=== PATIENT | female | born 1935 | race Caucasian/White ===

== ENCOUNTER 2017-05-01 19:24 | Inpatient (IN) | payer MEDICARE, OTHER ==
--- NOTE | 2017-05-01 20:02 | ER Document Report ---
ED Hip Pain/Injury - General Chief Complaint: Hip Injury Stated Complaint: FALL,HIP PAIN Time Seen by Provider: 05/01/17 19:34 Mode of Arrival: Medic Information source: Patient TRAVEL OUTSIDE OF THE [place] IN LAST 30 DAYS: No - HPI Patient complains to provider of: Injury, Hip Occurred: This afternoon Where: Home, Outdoors - garden Onset/Duration: Sudden Quality of pain: Sharp Severity: Severe Context: Fell/tripped Symptoms prior to fall: None Symptoms since fall: denies: Chest pain Skin Color: Normal Skin Temperature: Warm Rotation of extremity: None - Related Data Allergies/Adverse Reactions: shellfish derived Allergy (Unverified 05/01/17 19:38) Home Medications: Current Home Medications No Home Medications 05/01/17 [History] Past Medical History - General Information source: Patient - Social History Smoking Status: Never Smoker Cigarette use (# per day): No Chew tobacco use (# tins/day): No Frequency of alcohol use: None Drug Abuse: None Lives with: Spouse/Significant other Family History: Reviewed & Not Pertinent Patient has suicidal ideation: No Patient has homicidal ideation: No - Past Medical History Cardiac Medical History: Reports: None Pulmonary Medical History: Reports: None EENT Medical History: Reports: None Neurological Medical History: Reports: None Endocrine Medical History: Reports: None Renal/ Medical History: Reports: None Malignancy Medical History: Reports: None GI Medical History: Reports: None Musculoskeltal Medical History: Reports None Psychiatric Medical History: Reports: None Past Surgical History: Reports: Hx Bowel Surgery - COLON Ca RESECTION 2006 Review of Systems - Review of Systems Constitutional: No symptoms reported EENT: No symptoms reported Cardiovascular: No symptoms reported Respiratory: No symptoms reported Gastrointestinal: No symptoms reported Genitourinary: No symptoms reported Female Genitourinary: Post menopausal Musculoskeletal: See HPI Skin: No symptoms reported Neurological/Psychological: No symptoms reported Physical Exam - Vital signs Vitals: Temp Pulse Resp BP Pulse Ox 97.4 F 73 17 158/56 H 96 05/01/17 19:31 05/01/17 19:31 05/01/17 19:31 05/01/17 19:31 05/01/17 19:31 Interpretation: Hypertensive - General General appearance: Appears well, Alert In distress: None - HEENT Head: Normocephalic Eyes: Normal Conjunctiva: Normal Ears: Normal Nasal: Normal Mouth/Lips: Normal Mucous membranes: Normal Pharynx: Normal Neck: Normal - Respiratory Respiratory status: No respiratory distress Breath sounds: Normal - Cardiovascular Rhythm: Regular Heart sounds: Normal auscultation Murmur: No - Abdominal Inspection: Normal Distension: No distension - Extremities General upper extremity: Normal inspection General lower extremity: Normal inspection, Tender - R. HIP, Normal color, Other - MUCH PAIN W/ PASSIVE MOTION IN ANY PLANE - Neurological Neuro grossly intact: Yes Cognition: Normal Orientation: AAOx4 - Psychological Associated symptoms: Normal affect, Normal mood - Skin Skin Temperature: Warm Skin Moisture: Dry Skin Color: Normal Skin Turgor: Elastic Course - Vital Signs Vital signs: Temp Pulse Resp BP Pulse Ox 97.4 F 73 17 158/56 H 98 05/01/17 19:31 05/01/17 19:31 05/01/17 19:31 05/01/17 19:31 05/01/17 20:05 - Laboratory Result Diagrams: 05/01/17 21:29 05/01/17 21:29 Laboratory results interpreted by me: 05/01/17 05/01/17 21:29 21:29 WBC 14.3 H Seg Neuts % (Manual) 89 H Lymphocytes % (Manual) 5 L Abs Neuts (Manual) 12.7 H BUN 23 H Glucose 159 H - Diagnostic Test Radiology reviewed: Image reviewed, Reports reviewed - Consults DR. CHAVEZ Time consulted: 23:55 Consulted provider: will come to ER Discharge - Discharge Clinical Impression: Fracture of hip Qualifiers: Encounter type: initial encounter Fracture type: closed Laterality: right Qualified Code(s): S72.001A - Fracture of unspecified part of neck of right femur, initial encounter for closed fracture Condition: Good Disposition: ADMITTED INPATIENT Admitting Provider: Hospitalist Unit Admitted: Telemetry
--- NOTE | 2017-05-01 20:25 | RADIOLOGY REPORT (SQ) ---
EXAM DESCRIPTION: HIP RIGHT AP/LATERAL COMPLETED DATE/TIME: 05/01/2017 8:11 pm REASON FOR STUDY: bed mp s/p fall per dr rodriguez +rotation COMPARISON: None. NUMBER OF VIEWS: Two views. TECHNIQUE: AP pelvis and additional frog-leg view of the right hip. LIMITATIONS: None. FINDINGS: MINERALIZATION: Normal. RIGHT HIP: Fracture is identified at the level of the base of the right femoral neck. LEFT HIP: No fracture or dislocation. No worrisome bone lesions. PUBIS AND ISCHIUM: No fracture. PELVIS: No fracture. SACRUM: No fracture or dislocation. No worrisome bone lesions. LOWER LUMBAR SPINE: No fracture or dislocation. No worrisome bone lesions. No significant disc disea se. SOFT TISSUES: No findings. OTHER: No other significant finding. IMPRESSION: Right hip fracture the level of the base of the femoral neck. Other findings as noted hudson kendall TECHNICAL DOCUMENTATION: JOB ID: [id number] [employer]- All Rights Reserved
[2017-05-01 21:36] LABS: HEMATOCRIT 40.9 % (36.0-47.0); HEMOGLOBIN 13.5 g/dL (12.0-15.5); HGB HCT DIFFERENCE -0.4; MEAN CORPUSCULAR HEMOGLOBIN 28.6 pg (27.0-33.4); MEAN CORPUSCULAR VOLUME 87 fl (80-97); RED BLOOD COUNT 4.73 10^6/uL (3.72-5.28); RED CELL DISTRIBUTION WIDTH 13.7 % (11.5-14.0); WHITE BLOOD COUNT 14.3 10^3/uL (4.0-10.5)
[2017-05-01] MEDS ORDERED: HYDROMORPHONE HCL INJ/PF 2 MG/ML AMPULE IV ONE (21:52)
[2017-05-01 21:54] LABS: ALANINE AMINOTRANSFERASE 26 U/L (9-52); ALBUMIN 4.4 g/dL (3.5-5.0); ALKALINE PHOSPHATASE 98 U/L (38-126); ANION GAP 10 (5-19); ASPARTATE AMINO TRANSFERASE 22 U/L (14-36); BASOPHILS % (MANUAL) 0 % (0-2); BILIRUBIN,DIRECT 0.4 mg/dL (0.0-0.4); BILIRUBIN,TOTAL 0.5 mg/dL (0.2-1.3); BLOOD UREA NITROGEN 23 mg/dL (7-20); CALCIUM 9.4 mg/dL (8.4-10.2); CARBON DIOXIDE 27 mmol/L (22-30); CHLORIDE 103 mmol/L (98-107); CREATININE RESULT 0.82 mg/dL (0.52-1.25); EOSINOPHILS % (MANUAL) 1 % (0-6); GLUCOSE 159 mg/dL (75-110); LYMPHOCYTES % (MANUAL) 5 % (13-45); POTASSIUM 4.6 mmol/L (3.6-5.0); SODIUM 140.4 mmol/L (137-145); TOTAL CELLS COUNTED 100; TOTAL PROTEIN 7.8 g/dL (6.3-8.2)
[2017-05-01 21:55] LABS: TOXIC GRANULATION SLIGHT
--- NOTE | 2017-05-01 22:46 | RADIOLOGY REPORT (SQ) ---
EXAM DESCRIPTION: CHEST SINGLE VIEW COMPLETED DATE/TIME: 05/01/2017 10:30 pm REASON FOR STUDY: PRE-OP COMPARISON: None. EXAM PARAMETERS: NUMBER OF VIEWS: One view. TECHNIQUE: Single frontal radiographic view of the chest acquired. RADIATION DOSE: NA LIMITATIONS: None. FINDINGS: LUNGS AND PLEURA: No opacities, masses or pneumothorax. No pleural effusion. MEDIASTINUM AND HILAR STRUCTURES: No masses. Contour normal. HEART AND VASCULAR STRUCTURES: Heart normal in size. Normal vasculature. BONES: No acute findings. HARDWARE: None in the chest. OTHER: No other significant finding. IMPRESSION: NO ACUTE RADIOGRAPHIC FINDING IN THE CHEST. TECHNICAL DOCUMENTATION: JOB ID: [id number]
[2017-05-02 00:26] LABS: ADD ON TESTING BLD IN LAB ACKNOWLEDGE
[2017-05-02 00:35] LABS: MAGNESIUM 1.9 mg/dL (1.6-2.3)
[2017-05-02 01:27] LABS: APPEARANCE,URINE SLIGHTLY-CLOUDY; BILIRUBIN,URINE NEGATIVE (NEGATIVE); GLUCOSE, URINE NEGATIVE (NEGATIVE); KETONES,URINE TRACE mg/dL (NEGATIVE); LEUKOCYTE ESTERASE,URINE SMALL (NEGATIVE); NITRITE,URINE POSITIVE (NEGATIVE); PROTEIN,URINE 30 mg/dL (NEGATIVE); URINE SPECIFIC GRAVITY 1.019; UROBILINOGEN,URINE NEGATIVE mg/dL (<2.0)
[2017-05-02] MEDS ORDERED: CEFTRIAXONE 1 GM/D5W RTU 1 GM/50 ML RTUPB IV ONE (04:00)
[2017-05-02] MEDS ORDERED: DEXTROSE 40% GEL 15 GM TUBE PO PRN ×2 (05:11)
[2017-05-02] MEDS ORDERED: MAGNESIUM HYDROXIDE SUSP 30 ML UDCUP PO PRN (05:11)
[2017-05-02] MEDS ORDERED: NORMAL SALINE 1000 ML 1,000 ML IV PRN (05:11)
[2017-05-02] MEDS ORDERED: DEXTROSE 50%-WATER 25 GM/50 ML DISP.SYRIN IV PRN ×2 (05:11)
[2017-05-02] MEDS ORDERED: GLUCAGON,HUMAN RECOMB 1 MG INJ SUBCUT PRN (05:11)
[2017-05-02] MEDS ORDERED: ACETAMINOPHEN 325 MG TABLET PO PRN (05:11)
[2017-05-02] MEDS ORDERED: PROMETHAZINE HCL 25 MG TABLET PO PRN (05:16)
[2017-05-02] MEDS ORDERED: MORPHINE SULFATE 10 MG/ML INJ IV PRN (05:17)
--- NOTE | 2017-05-02 08:14 | EKG REPORT ---
SEVERITY:- BORDERLINE ECG - SINUS RHYTHM BORDERLINE LEFT AXIS DEVIATION LOW VOLTAGE IN FRONTAL LEADS BORDERLINE PROLONGED QT INTERVAL : Confirmed by: Mando Baig MD 02-May-2017 08:14:39
--- NOTE | 2017-05-02 09:10 | PDOC CONSULTATION ---
Consultation Consult Date: 05/02/17 Consult reason:: Right hip fracture History of Present Illness Admission Date/PCP: 05/02/17 05:11 History of Present Illness: Patient is an 82-year-old white female who lives independently and is a community ambulator who fell at home and was unable to ambulate. She was brought to the emergency room where a right basicervical femoral neck fracture was identified. She is admitted to the hospital service and orthopedics consulted for fracture management. Past Medical History Cardiac Medical History: Reports: None Pulmonary Medical History: Reports: None EENT Medical History: Reports: None Neurological Medical History: Reports: None Endocrine Medical History: Reports: None Renal/ Medical History: Reports: None Malignancy Medical History: Reports: None GI Medical History: Reports: None Musculoskeltal Medical History: Reports: None Psychiatric Medical History: Reports: None Past Surgical History Past Surgical History: Reports: None Social History Lives with: Spouse/Significant other Smoking Status: Unknown if Ever Smoked Frequency of Alcohol Use: None Hx Recreational Drug Use: No Drugs: None - Advance Directive Resuscitation Status: Full Code Family History Family History: Reviewed & Not Pertinent Parental Family History Reviewed: No Children Family History Reviewed: No Sibling(s) Family History Reviewed.: No Medication/Allergy Home Medications: No Home Medications 05/01/17 Allergies/Adverse Reactions: shellfish derived Allergy (Unverified 05/02/17 08:55) Review of Systems All systems: as per [facility] Physical Exam Vital Signs: Temp Pulse Resp BP Pulse Ox 36.9 C 80 16 123/58 L 100 05/02/17 08:00 05/02/17 08:00 05/02/17 08:00 05/02/17 08:00 05/02/17 08:00 Physical Exam: Is a somewhat overweight middle-aged white female lying in hospital bed. She is alert oriented and appropriate. She is aware of her surroundings and a long discussion about the need for surgical intervention. General appearance: PRESENT: mild distress Head exam: PRESENT: normocephalic Eye exam: PRESENT: EOMI Respiratory exam: PRESENT: unlabored Cardiovascular exam: PRESENT: RRR Pulses: PRESENT: +1 pedal pulses bilateral Vascular exam: PRESENT: normal capillary refill GI/Abdominal exam: PRESENT: soft Rectal exam: PRESENT: deferred Extremities exam: PRESENT: other - Right lower extremity without deformity. This pain is associated with passive range of motion. Skin is intact. Distal neurovascular examination is intact. Neurological exam: PRESENT: alert, awake, oriented to person, oriented to place , oriented to time, oriented to situation. ABSENT: motor sensory deficit Psychiatric exam: PRESENT: appropriate affect, normal mood. ABSENT: homicidal ideation, suicidal ideation Skin exam: PRESENT: dry, intact, warm. ABSENT: cyanosis, rash Results Impressions: Hip/Pelvis X-Ray 05/01/17 00:00 IMPRESSION: Right hip fracture the level of the base of the femoral neck. Other findings as noted above Chest X-Ray 05/01/17 20:58 IMPRESSION: NO ACUTE RADIOGRAPHIC FINDING IN THE CHEST. Status: Imported from PACS Assessment & Plan - Diagnosis (1) Fracture of femoral neck, right Is this a current diagnosis for this admission?: YesPlan: 82-year-old white female community ambulator with a right femoral neck fracture. Plan will be for open reduction internal fixation under choice anesthesia first thing tomorrow morning. - Time Time Spent: 50 to 70 Minutes Anticipated discharge: SNF Within: within 48 hours
--- NOTE | 2017-05-02 09:15 | PDOC H&P ---
History of Present Illness Admission Date/PCP: 05/02/17 05:11 Samara orosco Patient complains of: Right hip pain, status post fall History of Present Illness: CHALO LI is a 82 year old female with underlying arthritis, along with a easy bruisability, colon cancer survivor, S/P surgery for same in 2006, and status post excision of melanoma from her face and left wrist, who presents to the emergency room after falling at home in her garden when her feet became entangled in an electrical cord. Workup has revealed right hip fracture. Quite sharp pronounced pain with much of any movement of her right lower extremity and obviously with any contact of the area of injury. Prior to her fall, no specific complaints, including nausea vomiting, fever or chills, diarrhea or dysuria, chest or abdominal pain. There was no loss of consciousness with the fall, and she did not strike her head. Patient has been discussed with emergency room physician who evaluated the patient. . Laboratory results are listed in [employer] and are reviewed. X-ray summary results are listed below, with full report(s) reviewed. . EKG reviewed. No prior EKG available for comparison. Social history/personal habits: . 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 No use of alcohol tobacco or illicit drugs. Allergies/adverse reactions are listed in [employer] and are reviewed. No problems with intravenous contrast dye. Home medications none REVIEW OF SYSTEMS: Constitutional: No fever or chills. Eyes: Wears reading glasses. ENT: No swallowing problems or complaints. Denies hearing loss. Pulmonary: No current complaints. Cardiovascular: No current complaints, including chest pain. States she can easily walk a mile without shortness of breath, chest pain, or symptoms consistent with lower extremity claudication. Confirmed by . Gastrointestinal: No current complaints, including nausea or vomiting. Skin: No current complaints, including rashes. Hematologic: Easy bruising. Neurologic: No current complaints, including numbness or tingling. Musculoskeletal: See history and present illness. Psychiatric: Denies anxiety or depression. Endocrine: No current complaints, including polyuria. Genitourinary: No current complaints, including dysuria. PHYSICAL EXAMINATION: 5 feet 6 inches tall. 71.9 kg. BMI 25.6 kg/m.Temperature 97.5. Pulse 81 and regular. Blood pressure 137/54. Respirations are 18 and unlabored. 98% saturation on room air. Adequately nourished though chronically ill-appearing female who appears a bit older than her stated age. Pleasant awake alert and cooperative. No obvious distress other than somewhat anxious. is present at her side; patient approves. Skin is warm and dry. No grossly obvious evidence of rash in areas of skin examined. No subcutaneous nodules palpated. ENT: Hearing grossly normal to normal conversation. Tongue midline on protrusion pink and slightly tacky. Eyes: No scleral icterus. Pupils equal and reactive to light at 4 mm. [place] conjunctivae. No raccoon eyes. Neck is supple and nontender to gentle active range of motion and palpation. Midline trachea. No palpable thyroid nodule mass enlargement or tenderness. Lymphatic: No palpable cervical or clavicular nodes. Neck and lymphatic exams limited by patient body habitus. Psychiatric: Reasonable insight into acute and chronic medical issues. Oriented to time location and why here. Lungs: Auscultation reveals clear and equal breath sounds bilaterally. No use of accessory respiratory muscles. Cardiovascular: Heart regular rate and rhythm, without gallop murmur or rub. No carotid or abdominal aortic bruits. No ankle or pedal edema. Faintly palpable dorsalis pedis pulses. Abdomen:soft slightly distended nontender with positive bowel sounds. Unable to adequately evaluate abdomen for masses or organomegaly due to distention. Extremities: Feet are warm and dry. No calf tenderness to compression. No grossly obvious visual evidence of calf swelling. Gentle manipulation of left lower extremity fails to reveal any obvious evidence of injury or instability to knee hip or ankle. Manipulation of right lower extremity obviously not attempted due to her injury. Right lower extremity slightly externally rotated , and a bit shorter than the left lower extremity. Neurologic: Moves upper extremities grossly normally. Left patellar reflex absent; not checked on right due to her injury. Absent left Babinski; not checked on right due to her injury.. Light touch is intact at feet. Dorsiflexion and plantarflexion of feet 5 / 5 and symmetric. Past Medical History Cardiac Medical History: Denies: Congestive Heart Failure, DVT, Myocardial Infarction, Hyperlipidema, Hypertension, Pulmonary Embolism Pulmonary Medical History: Denies: Asthma, Chronic Obstructive Pulmonary Disease (COPD), Sleep Apnea EENT Medical History: Reports: Eyes - Glasses Denies: Ears, Throat Neurological Medical History: Denies: Hemorrhagic CVA, Ischemic CVA, Seizures Endocrine Medical History: Denies: Diabetes Mellitus Type 1, Diabetes Mellitus Type 2, Hyperthyroidism, Hypothyroidism Renal/ Medical History: Reports: None Malignancy Medical History: Reports: Colorectal Cancer - Segmental colectomy, 2006, Skin Cancer - Melanoma excised from face and left wrist GI Medical History: Denies: Cirrhosis, Gastroesophageal Reflux Disease, Hepatitis, Peptic Ulcer Disease Musculoskeltal Medical History: Reports: Arthritis Psychiatric Medical History: Denies: Alcohol Dependency, Depression, General Anxiety Disorder, Substance Abuse, Tobacco Dependency Hematology: Reports: Other - Easy bruising Infectious Medical History: Denies: Clostridium Difficile, Hepatitis B, Hepatitis C, Methicillin- Resistant Staph Aureus Past Surgical History Past Surgical History: Reports: Other - Segmental colectomy, carcinoma; excision of melanoma from face, left wrist Social History Information Source: Patient, Emergency Med Personnel, [facility] Records Lives with: Spouse/Significant other Smoking Status: Unknown if Ever Smoked Frequency of Alcohol Use: None Hx Recreational Drug Use: No Drugs: None - Advance Directive Resuscitation Status: Full Code Surrogate healthcare decision maker:: Family History Family History: Reviewed & Not Pertinent Parental Family History Reviewed: Yes - Parents of myocardial infarctions Children Family History Reviewed: Yes - Healthy Sibling(s) Family History Reviewed.: Yes - Uncertain health status Medication/Allergy Home Medications: Acetaminophen [Tylenol 325 mg Tablet] 650 mg PO Q4HP PRN tablet 05/05/17 Cefuroxime Axetil [Ceftin 500 mg Tablet] 500 mg PO BID #9 tablet 05/05/17 Docusate Sodium [Colace 100 mg Capsule] 100 mg PO BID capsule 05/05/17 Magnesium Hydroxide [Milk of Magnesia 30 ml Udcup] 30 ml PO Q48HP PRN udc 05/05 Oxycodone HCl [Oxy-Ir 5 mg Tablet] 5 mg PO Q6HP PRN #30 tablet 05/05/17 Rivaroxaban [Xarelto 10 mg Tablet] 10 mg PO QHS #30 tablet 05/05/17 Allergies/Adverse Reactions: shellfish derived Allergy (Unverified 05/02/17 08:55) Physical Exam Vital Signs: Temp Pulse Resp BP Pulse Ox 97.5 F 81 18 137/54 H 98 05/02/17 03:58 05/02/17 03:58 05/02/17 03:58 05/02/17 03:58 05/02/17 03:58 Results Impressions: Hip/Pelvis X-Ray 05/01/17 00:00 IMPRESSION: Right hip fracture the level of the base of the femoral neck. Other findings as noted above Chest X-Ray 05/01/17 20:58 IMPRESSION: NO ACUTE RADIOGRAPHIC FINDING IN THE CHEST. Assessment & Plan - Diagnosis (1) DVT prophylaxis Is this a current diagnosis for this admission?: Yes (2) UTI (urinary tract infection) Qualifiers: Urinary tract infection type: site unspecified Is this a current diagnosis for this admission?: YesPlan: Blood and urine cultures. Rocephin. (3) Closed right hip fracture Qualifiers: Encounter type: initial encounter Qualified Code(s): S72.001A - Fracture of unspecified part of neck of right femur, initial encounter for closed fracture Is this a current diagnosis for this admission?: YesPlan: Orthopedics consult. Knee high SCDs for DVT prophylaxis; medical DVT prophylaxis per orthopedics, per usual protocol.. Impression and plans were discussed with patient and , both of whom concur. Time spent in evaluation and management of patient: 58 minutes. - Time Time Spent: 50 to 70 Minutes Anticipated discharge: Acute Rehab Within: Other - Inpatient Certification Based on my medical assessment, after consideration of the patient's comorbidities, presenting symptoms, or acuity I expect that the services needed warrant INPATIENT care.: Yes I certify that my determination is in accordance with my understanding of Medicare's requirements for reasonable and necessary INPATIENT services [42 CFR 412.3e].: Yes Medical Necessity: Need for Pain Control, Need for Surgery, Risk of Diagnosis Which Will Require Inpatient Eval/Care/Monitoring Post Hospital Care: D/C or Transfer Summary
[2017-05-02] MEDS: DOCUSATE SODIUM 100 MG CAPSULE PO SCH ×2 (10:45→18:05)
[2017-05-02] MEDS: TRAMADOL HCL 50 MG TABLET PO PRN ×3 (12:05→22:12)
--- NOTE | 2017-05-02 15:28 | PDOC PROGRESS REPORT ---
Subjective Progress Note for:: 05/02/17 Subjective:: Patient is seen on morning rounds. She is resting in bed. Her is at bedside. They state Dr Ruff has just seen the patient from orthopedic surgery. Her surgery to repair hip fracture will be tomorrow due to present schedule. Patient states she is only having pain with movement. She denies any shortness of breath, chest pain or dyspnea. She denies any fevers or chills at the present time. Physical Exam Vital Signs: Temp Pulse Resp BP Pulse Ox 98.6 F 78 18 144/49 H 95 05/02/17 12:04 05/02/17 12:04 05/02/17 12:04 05/02/17 12:04 05/02/17 12:04 General appearance: PRESENT: no acute distress, well-developed, well-nourished Head exam: PRESENT: atraumatic, normocephalic Eye exam: PRESENT: conjunctiva pink Ear exam: PRESENT: normal external ear exam Mouth exam: PRESENT: moist, tongue midline Neck exam: ABSENT: carotid bruit, JVD, lymphadenopathy, thyromegaly Respiratory exam: PRESENT: clear to auscultation vanessa. ABSENT: rales, rhonchi, wheezes Cardiovascular exam: PRESENT: RRR. ABSENT: diastolic murmur, rubs, systolic murmur Pulses: PRESENT: normal dorsalis pedis pul Vascular exam: PRESENT: normal capillary refill GI/Abdominal exam: PRESENT: normal bowel sounds, soft. ABSENT: distended, guarding, mass, organolmegaly, rebound, tenderness Rectal exam: PRESENT: deferred Extremities exam: PRESENT: full ROM. ABSENT: calf tenderness, clubbing, pedal edema Neurological exam: PRESENT: alert, awake, oriented to person, oriented to place , oriented to time, oriented to situation, CN II-XII grossly intact. ABSENT: motor sensory deficit Psychiatric exam: PRESENT: appropriate affect, normal mood. ABSENT: homicidal ideation, suicidal ideation Skin exam: PRESENT: dry, intact, warm. ABSENT: cyanosis, rash Results Impressions: Hip/Pelvis X-Ray 05/01/17 00:00 IMPRESSION: Right hip fracture the level of the base of the femoral neck. Other findings as noted above Chest X-Ray 05/01/17 20:58 IMPRESSION: NO ACUTE RADIOGRAPHIC FINDING IN THE CHEST. Assessment & Plan - Diagnosis (1) Closed right hip fracture Qualifiers: Encounter type: initial encounter Qualified Code(s): S72.001A - Fracture of unspecified part of neck of right femur, initial encounter for closed fracture Is this a current diagnosis for this admission?: YesPlan: Patient is scheduled for ORIF of right hip with Dr Ruff. She has no cardiopulmonary risk factors impeding surgery. She is a very active 82 yr old (2) DVT prophylaxis Is this a current diagnosis for this admission?: Yes (3) UTI (urinary tract infection) Qualifiers: Urinary tract infection type: site unspecified Is this a current diagnosis for this admission?: Yes - Time Time Spent with patient: 25-34 minutes Critical Time spent with patient: 15-24 minutes Medications reviewed and adjusted accordingly: Yes
[2017-05-02] MEDS: CEFTRIAXONE 1 GM/D5W RTU 1 GM/50 ML RTUPB IV SCH (21:40)
[2017-05-03] MEDS ORDERED: CEFAZOLIN 2 GM/D5W RTU 2 GM/50 ML RTUPB IV PRN (05:00)
[2017-05-03] MEDS ORDERED: FENTANYL CITRATE INJ/PF 100 MCG/2 ML AMPUL ONE (06:43)
[2017-05-03] MEDS ORDERED: MIDAZOLAM 2 MG/2 ML INJ ONE (06:44)
[2017-05-03] MEDS ORDERED: PROPOFOL INJ 200 MG/20 ML VIAL IV ONE (06:44)
--- NOTE | 2017-05-03 07:15 | PDOC PROGRESS REPORT ---
Subjective Progress Note for:: 05/03/17 Physical Exam Vital Signs: Temp Pulse Resp BP Pulse Ox 36.4 C 77 17 157/65 H 95 05/03/17 05:58 05/03/17 05:58 05/03/17 05:58 05/03/17 05:58 05/03/17 05:58 Intake & Output 05/02/17 05/03/17 05/04/17 06:59 06:59 06:59 Intake Total 3055 Output Total 1010 Balance 2044 Results Impressions: Hip/Pelvis X-Ray 05/01/17 00:00 IMPRESSION: Right hip fracture the level of the base of the femoral neck. Other findings as noted above Chest X-Ray 05/01/17 20:58 IMPRESSION: NO ACUTE RADIOGRAPHIC FINDING IN THE CHEST. Assessment & Plan - Diagnosis (1) Fracture of femoral neck, right Is this a current diagnosis for this admission?: YesPlan: plan for open reduction internal fixation right hip fracture today under choice anesthesia - Time Time Spent with patient: Less than 15 minutes Anticipated discharge: SNF Within: Other
[2017-05-03] MEDS ORDERED: CEFAZOLIN INJ 1 GM VIAL ONE ×2 (07:48→07:58)
[2017-05-03] MEDS ORDERED: FENTANYL CITRATE INJ/PF 100 MCG/2 ML AMPUL IV PRN ×3 (07:53)
[2017-05-03] MEDS ORDERED: PROMETHAZINE HCL INJ 25 MG/1 ML VIAL IV PRN (07:53)
[2017-05-03] MEDS ORDERED: MEPERIDINE HCL/PF INJ 25 MG/1 ML DISP.SYRIN IV PRN (07:53)
[2017-05-03] MEDS ORDERED: DIPHENHYDRAMINE HCL 50 MG/ML VIAL IV PRN (07:53)
--- NOTE | 2017-05-03 08:08 | Operative Report ---
Operative Report DATE OF SURGERY: 05/03/17 PREOPERATIVE DIAGNOSIS: Right proximal femur fracture OPERATION: Open reduction internal fixation right proximal femur fracture SURGEON: XENA CORREA ANESTHESIA: Spinal ESTIMATED BLOOD LOSS: 50 PROCEDURE: With the patient supine on the fracture table the right lower extremities manipulated under fluoroscopic guidance to affect an anatomic reduction of the basicervical femoral neck fracture. The right lower extremities prepped and draped in a sterile fashion. A pin is placed percutaneously down through the skin into the proximal femoral metadiaphysis. Combined reamers to fashion a cortical opening. This was removed and a ball-tipped guide jose advanced down the femur measuring a depth of 380 mm. Subsequently a 380mm x 11 mm 130 [place] gamma 3 nail was advanced over the ball-tipped guide jose to an appropriate depth to allow the proximal interlock. A proximal interlock is then placed which is equidistance between the cephalad and caudad border of the femoral neck as well as in the AP dimension. It is locked from above. Lastly a distal interlock is placed freehand using fluoroscopic guidance uneventfully. The wounds were irrigated and closed with interrupted Vicryl followed by veronica. Sterile dressings are applied and the patient's return to the PACU in satisfactory condition.
[2017-05-03] MEDS ORDERED: RINGERS SOLUTION,LACTATED 1,000 ML IV PRN ×2 (08:12)
[2017-05-03] MEDS ORDERED: ONDANSETRON HCL INJ/PF 4 MG/2 ML SDV IV PRN (08:13)
[2017-05-03] MEDS ORDERED: MORPHINE SULFATE 10 MG/ML INJ IV PRN (08:14)
[2017-05-03] MEDS: DOCUSATE SODIUM 100 MG CAPSULE PO SCH ×2 (10:09→17:25)
--- NOTE | 2017-05-03 10:15 | RADIOLOGY REPORT (SQ) ---
EXAM DESCRIPTION: FEMUR RIGHT; NO CHG FLUORO COMPLETED DATE/TIME: 05/03/2017 8:23 am REASON FOR STUDY: RIGHT HIP IM NAILING COMPARISON: Right hip films 05/01/2017 FLUOROSCOPY TIME: 0.5 minutes 11 digital radiographic images saved to PACS. TECHNIQUE: Intra-operative images acquired during surgical procedure to evaluate progress. NUMBER OF IMAGES: 11 digital radiographic images saved to PACS. LIMITATIONS: None. FINDINGS: Multiple C-arm images during ORIF right hip intertrochanteric fracture, hardware in good a lignment IMPRESSION: Intra procedural imaging and fluoro COMMENT: Quality ID [id number]: Final reports for procedures using fluoroscopy that document radiation exp osure indices, or exposure time and number of fluorographic images (if radiation exposure indices are not available) Please consult full operative report of the attending physician for description of the procedure. TECHNICAL DOCUMENTATION: JOB ID: [id number] [employer]- All Rights Reserved
[2017-05-03] MEDS: RINGERS SOLUTION,LACTATED 1,000 ML IV PRN (10:53)
--- NOTE | 2017-05-03 13:56 | PDOC PROGRESS REPORT ---
Subjective Progress Note for:: 05/03/17 Subjective:: Patient is seen on morning rounds. She is resting bed. She has just returned from the OR after having her hip repaired by Dr Ruff. She states her pain is much improved. She denies any shortness of breath, chest pain or dyspnea. She denies any fevers or chills at the present time. Physical Exam Vital Signs: Temp Pulse Resp BP Pulse Ox 98.7 F 80 12 176/61 H 100 05/03/17 13:30 05/03/17 12:30 05/03/17 13:30 05/03/17 13:30 05/03/17 13:30 Intake & Output 05/02/17 05/03/17 05/04/17 06:59 06:59 06:59 Intake Total 3055 1950 Output Total 1010 1390 Balance 2045 560 General appearance: PRESENT: no acute distress, well-developed, well-nourished Head exam: PRESENT: atraumatic, normocephalic Eye exam: PRESENT: conjunctiva pink, EOMI, PERRLA. ABSENT: scleral icterus Ear exam: PRESENT: normal external ear exam Mouth exam: PRESENT: moist, tongue midline Neck exam: ABSENT: carotid bruit, JVD, lymphadenopathy, thyromegaly Respiratory exam: PRESENT: clear to auscultation vanessa. ABSENT: rales, rhonchi, wheezes Cardiovascular exam: PRESENT: RRR. ABSENT: diastolic murmur, rubs, systolic murmur Pulses: PRESENT: normal dorsalis pedis pul Vascular exam: PRESENT: normal capillary refill GI/Abdominal exam: PRESENT: normal bowel sounds, soft. ABSENT: distended, guarding, mass, organolmegaly, rebound, tenderness Rectal exam: PRESENT: deferred Extremities exam: PRESENT: full ROM, tenderness - right hip. ABSENT: calf tenderness, clubbing, pedal edema Neurological exam: PRESENT: alert, awake, oriented to person, oriented to place , oriented to time, oriented to situation, CN II-XII grossly intact. ABSENT: motor sensory deficit Psychiatric exam: PRESENT: appropriate affect, normal mood. ABSENT: homicidal ideation, suicidal ideation Skin exam: PRESENT: dry, intact, warm. ABSENT: cyanosis, rash Results Impressions: Hip/Pelvis X-Ray 05/01/17 00:00 IMPRESSION: Right hip fracture the level of the base of the femoral neck. Other findings as noted above Chest X-Ray 05/01/17 20:58 IMPRESSION: NO ACUTE RADIOGRAPHIC FINDING IN THE CHEST. Femur X-Ray 05/03/17 00:00 IMPRESSION: Intra procedural imaging and fluoro Fluoroscopy 05/03/17 00:00 IMPRESSION: Intra procedural imaging and fluoro Assessment & Plan - Diagnosis (1) Closed right hip fracture Qualifiers: Encounter type: initial encounter Qualified Code(s): S72.001A - Fracture of unspecified part of neck of right femur, initial encounter for closed fracture Is this a current diagnosis for this admission?: YesPlan: She has just returned from the OR after ORIF of right hip by Dr Ruff. Patient reports improvement of her pain (2) UTI (urinary tract infection) Qualifiers: Urinary tract infection type: site unspecified Is this a current diagnosis for this admission?: YesPlan: Continue broad spectrum antibiotics urine culture (3) DVT prophylaxis Is this a current diagnosis for this admission?: Yes - Time Time Spent with patient: 25-34 minutes Critical Time spent with patient: 15-24 minutes Medications reviewed and adjusted accordingly: Yes Anticipated discharge: Home with Homehealth
[2017-05-03] MEDS: CEFAZOLIN 2 GM/D5W RTU 2 GM/50 ML RTUPB IV SCH ×2 (14:20→21:28)
[2017-05-03] MEDS: OXYCODONE HCL IR 5 MG TABLET PO PRN ×2 (14:28→21:28)
[2017-05-03] MEDS: CEFTRIAXONE 1 GM/D5W RTU 1 GM/50 ML RTUPB IV SCH (21:28)
[2017-05-03] MEDS: RIVAROXABAN 10 MG TABLET PO SCH (21:28)
[2017-05-04] MEDS: RINGERS SOLUTION,LACTATED 1,000 ML IV PRN (03:26)
[2017-05-04] MEDS: OXYCODONE HCL IR 5 MG TABLET PO PRN ×3 (03:27→18:34)
[2017-05-04 04:52] LABS: HGB HCT DIFFERENCE -0.2; MEAN CORPUSCULAR HEMOGLOBIN 28.4 pg (27.0-33.4); MEAN CORPUSCULAR VOLUME 86 fl (80-97); RED BLOOD COUNT 3.71 10^6/uL (3.72-5.28); RED CELL DISTRIBUTION WIDTH 13.2 % (11.5-14.0); WHITE BLOOD COUNT 8.4 10^3/uL (4.0-10.5)
[2017-05-04 05:10] LABS: HEMOGLOBIN 10.6 g/dL (12.0-15.5)
[2017-05-04 05:22] LABS: ANION GAP 6 (5-19); BLOOD UREA NITROGEN 8 mg/dL (7-20); CALCIUM 8.3 mg/dL (8.4-10.2); CARBON DIOXIDE 31 mmol/L (22-30); CHLORIDE 99 mmol/L (98-107); CREATININE RESULT 0.73 mg/dL (0.52-1.25); GLUCOSE 123 mg/dL (75-110); POTASSIUM 4.1 mmol/L (3.6-5.0); SODIUM 135.8 mmol/L (137-145)
--- NOTE | 2017-05-04 06:58 | PDOC PROGRESS REPORT ---
Subjective Progress Note for:: 05/04/17 Subjective:: Patient denies any significant discomfort. Considerable improvement from preop. Physical Exam Vital Signs: Temp Pulse Resp BP Pulse Ox 36.7 C 84 17 136/55 H 97 05/04/17 03:53 05/04/17 03:53 05/04/17 03:53 05/04/17 03:53 05/04/17 03:53 Intake & Output 05/02/17 05/03/17 05/04/17 06:59 06:59 06:59 Intake Total 3055 5450 Output Total 1010 2910 Balance 2045 2540 Weight 78.2 kg General appearance: PRESENT: no acute distress Head exam: PRESENT: normocephalic Respiratory exam: PRESENT: unlabored Cardiovascular exam: PRESENT: RRR Pulses: PRESENT: +1 pedal pulses bilateral Vascular exam: PRESENT: normal capillary refill GI/Abdominal exam: PRESENT: soft Rectal exam: PRESENT: deferred Extremities exam: PRESENT: other - Right lower extremity dressings clean dry and intact. Leg lengths are equal. Distal neurovascular examination is intact. Neurological exam: PRESENT: alert, awake, oriented to person, oriented to place , oriented to time, oriented to situation. ABSENT: motor sensory deficit Psychiatric exam: PRESENT: appropriate affect, normal mood. ABSENT: homicidal ideation, suicidal ideation Skin exam: PRESENT: dry, intact, warm. ABSENT: cyanosis, rash Results Laboratory Results: 05/04/17 04:08 05/04/17 04:08 05/04/17 05/04/17 04:08 04:08 WBC 8.4 RBC 3.71 L Hgb 10.6 L D Hct 32.0 L MCV 86 MCH 28.4 MCHC 33.0 RDW 13.2 Plt Count 141 L Sodium 135.8 L Potassium 4.1 Chloride 99 Carbon Dioxide 31 H Anion Gap 6 BUN 8 Creatinine 0.73 Est GFR ( Amer) > 60 Est GFR (Non-Af Amer) > 60 Glucose 123 H Calcium 8.3 L Impressions: Hip/Pelvis X-Ray 05/01/17 00:00 IMPRESSION: Right hip fracture the level of the base of the femoral neck. Other findings as noted above Chest X-Ray 05/01/17 20:58 IMPRESSION: NO ACUTE RADIOGRAPHIC FINDING IN THE CHEST. Femur X-Ray 05/03/17 00:00 IMPRESSION: Intra procedural imaging and fluoro Fluoroscopy 05/03/17 00:00 IMPRESSION: Intra procedural imaging and fluoro Status: Imported from PACS Assessment & Plan - Diagnosis (1) Fracture of femoral neck, right Is this a current diagnosis for this admission?: YesPlan: 82-year-old white female postop day 1 from open reduction internal fixation of a left basicervical femoral neck fracture. Hematocrit to 32%. Urinary cultures are growing gram-negative jose. For this she is on a broad-spectrum antibiotic. Physical therapy will continue. Anticipate discharge home with home health nursing, home health physical therapy, will walker, bedside commode once her functional level is appropriate. - Time Time Spent with patient: 15-24 minutes Anticipated discharge: Home with Homehealth Within: within 24 hours
[2017-05-04] MEDS: DOCUSATE SODIUM 100 MG CAPSULE PO SCH ×2 (09:36→18:34)
--- NOTE | 2017-05-04 16:01 | PDOC PROGRESS REPORT ---
Subjective Progress Note for:: 05/04/17 Subjective:: Patient is seen on morning rounds. She is resting bed. She has just returned from the OR after having her hip repaired by Dr Ruff. She states her pain is much improved. She denies any shortness of breath, chest pain or dyspnea. She denies any fevers or chills at the present time. Physical Exam Vital Signs: Temp Pulse Resp BP Pulse Ox 98.1 F 87 20 138/56 H 100 05/04/17 11:48 05/04/17 11:48 05/04/17 11:48 05/04/17 11:48 05/04/17 11:48 Intake & Output 05/03/17 05/04/17 05/05/17 06:59 06:59 06:59 Intake Total 3055 5450 Output Total 1010 2910 Balance 2045 2540 Weight 78.2 kg General appearance: PRESENT: no acute distress, well-developed, well-nourished Head exam: PRESENT: atraumatic, normocephalic Eye exam: PRESENT: conjunctiva pink, EOMI, PERRLA. ABSENT: scleral icterus Ear exam: PRESENT: normal external ear exam Mouth exam: PRESENT: moist, tongue midline Neck exam: ABSENT: carotid bruit, JVD, lymphadenopathy, thyromegaly Respiratory exam: PRESENT: decreased breath sounds, symmetrical, unlabored Cardiovascular exam: PRESENT: RRR. ABSENT: diastolic murmur, rubs, systolic murmur Pulses: PRESENT: normal dorsalis pedis pul Vascular exam: PRESENT: normal capillary refill GI/Abdominal exam: PRESENT: normal bowel sounds, soft. ABSENT: distended, guarding, mass, organolmegaly, rebound, tenderness Rectal exam: PRESENT: deferred Extremities exam: PRESENT: full ROM. ABSENT: calf tenderness, clubbing, pedal edema Neurological exam: PRESENT: alert, awake, oriented to person, oriented to place , oriented to time, oriented to situation, CN II-XII grossly intact. ABSENT: motor sensory deficit Psychiatric exam: PRESENT: appropriate affect, normal mood. ABSENT: homicidal ideation, suicidal ideation Skin exam: PRESENT: dry, intact, warm. ABSENT: cyanosis, rash Results Laboratory Results: 05/04/17 04:08 05/04/17 04:08 05/04/17 05/04/17 04:08 04:08 WBC 8.4 RBC 3.71 L Hgb 10.6 L D Hct 32.0 L MCV 86 MCH 28.4 MCHC 33.0 RDW 13.2 Plt Count 141 L Sodium 135.8 L Potassium 4.1 Chloride 99 Carbon Dioxide 31 H Anion Gap 6 BUN 8 Creatinine 0.73 Est GFR ( Amer) > 60 Est GFR (Non-Af Amer) > 60 Glucose 123 H Calcium 8.3 L Impressions: Hip/Pelvis X-Ray 05/01/17 00:00 IMPRESSION: Right hip fracture the level of the base of the femoral neck. Other findings as noted above Chest X-Ray 05/01/17 20:58 IMPRESSION: NO ACUTE RADIOGRAPHIC FINDING IN THE CHEST. Femur X-Ray 05/03/17 00:00 IMPRESSION: Intra procedural imaging and fluoro Fluoroscopy 05/03/17 00:00 IMPRESSION: Intra procedural imaging and fluoro Assessment & Plan - Diagnosis (1) Closed right hip fracture Qualifiers: Encounter type: initial encounter Qualified Code(s): S72.001A - Fracture of unspecified part of neck of right femur, initial encounter for closed fracture Is this a current diagnosis for this admission?: YesPlan: She has just returned from the OR after ORIF of right hip by Dr Ruff. Patient reports improvement of her pain (2) UTI (urinary tract infection) Qualifiers: Urinary tract infection type: site unspecified Is this a current diagnosis for this admission?: YesPlan: Continue broad spectrum antibiotics urine culture (3) DVT prophylaxis Is this a current diagnosis for this admission?: Yes - Time Time Spent with patient: 25-34 minutes Critical Time spent with patient: 15-24 minutes Medications reviewed and adjusted accordingly: Yes Anticipated discharge: Home with Homehealth
[2017-05-04] MEDS: CEFUROXIME 500 MG TABLET PO SCH (18:33)
[2017-05-04] MEDS: RIVAROXABAN 10 MG TABLET PO SCH (21:17)
[2017-05-05] MEDS: OXYCODONE HCL IR 5 MG TABLET PO PRN ×2 (00:51→10:02)
[2017-05-05] MEDS: CEFUROXIME 500 MG TABLET PO SCH (10:01)
[2017-05-05] MEDS: DOCUSATE SODIUM 100 MG CAPSULE PO SCH (10:02)
[2017-05-05 10:42] VITALS: BP 130/47
--- NOTE | 2017-05-05 15:32 | PDOC DISCHARGE SUMMARY ---
General - Admit/Disc Date/PCP Admission Date/Primary Care Provider: 05/02/17 05:11 Discharge Date: 05/05/17 - Discharge Diagnosis (1) Closed right hip fracture Is this a current diagnosis for this admission?: YesSummary: Continue home exercises and ambulation. Patient has refused home health PT or short term rehab. Discussed xarelto therapy for one month and bleeding precautions (2) UTI (urinary tract infection) Is this a current diagnosis for this admission?: YesSummary: She needs 4 more days of oral ceftin. She verbalizes understanding (3) DVT prophylaxis Is this a current diagnosis for this admission?: YesSummary: Xarelto - Additional Information Resuscitation Status: Full Code Discharge Diet: Regular Discharge Activity: Activity As Tolerated, Balance Activity w/Rest, No Driving, No tub bath Home Medications: Acetaminophen [Tylenol 325 mg Tablet] 650 mg PO Q4HP PRN tablet 05/05/17 Cefuroxime Axetil [Ceftin 500 mg Tablet] 500 mg PO BID #9 tablet 05/05/17 Docusate Sodium [Colace 100 mg Capsule] 100 mg PO BID capsule 05/05/17 Magnesium Hydroxide [Milk of Magnesia 30 ml Udcup] 30 ml PO Q48HP PRN udc 05/05 Oxycodone HCl [Oxy-Ir 5 mg Tablet] 5 mg PO Q6HP PRN #30 tablet 05/05/17 Rivaroxaban [Xarelto 10 mg Tablet] 10 mg PO QHS #30 tablet 05/05/17 History of Present Illness Patient complains of: Right hip pain after fall History of Present Illness: CHALO LI is a 82 year old female with underlying arthritis, along with a easy bruisability, colon cancer survivor from surgery in 2006, status post excision of melanoma from her face and left wrist, who presents to the emergency room after falling at home in her garden when her feet became entangled in an electrical cord. Workup has revealed right hip fracture. Quite sharp pronounced pain with much of any movement of her right lower extremity and obviously with any contact of the area of injury. Prior to her fall, no specific complaints, including nausea vomiting, fever or chills, diarrhea or dysuria, chest or abdominal pain. There was no loss of consciousness with the fall, and she did not strike her head. Hospital Course Hospital Course: The patient was admitted to the hospitalist service on telemetry. She was seen in consult by Dr Ruff, orthopedic surgery. She was taken to the OR the following morning for ORIF of right hip under spinal anesthesia. She tolerated the procedure well. She was able to be out of bed ambulating the following day with physical therapy. The patient and her to not wish to have short term inpatient rehab or home health physical therapy. She was given exercises to do at home two times daily by PT, and given appropriate instructions on activities to avoid. Her daughter is coming from [place] to stay with her for 2 weeks Physical Exam Vital Signs: Temp Pulse Resp BP Pulse Ox 97.8 F 80 16 130/47 H 96 05/05/17 10:33 05/05/17 10:33 05/05/17 10:33 05/05/17 10:33 05/05/17 10:33 Intake & Output 05/04/17 05/05/17 05/06/17 06:59 06:59 06:59 Intake Total 5450 1740 Output Total 2910 Balance 2540 1740 Weight 78.2 kg 79 kg General appearance: PRESENT: no acute distress, well-developed, well-nourished Head exam: PRESENT: atraumatic, normocephalic Eye exam: PRESENT: conjunctiva pink, EOMI, PERRLA. ABSENT: scleral icterus Ear exam: PRESENT: normal external ear exam Mouth exam: PRESENT: moist, tongue midline Neck exam: ABSENT: carotid bruit, JVD, lymphadenopathy, thyromegaly Respiratory exam: PRESENT: clear to auscultation vanessa. ABSENT: rales, rhonchi, wheezes Cardiovascular exam: PRESENT: RRR. ABSENT: diastolic murmur, rubs, systolic murmur Pulses: PRESENT: normal dorsalis pedis pul Vascular exam: PRESENT: normal capillary refill GI/Abdominal exam: PRESENT: normal bowel sounds, soft. ABSENT: distended, guarding, mass, organolmegaly, rebound, tenderness Rectal exam: PRESENT: deferred Extremities exam: PRESENT: full ROM. ABSENT: calf tenderness, clubbing, pedal edema Musculoskeletal exam: PRESENT: ambulatory - right hip incision, full ROM, tenderness Neurological exam: PRESENT: alert, awake, oriented to person, oriented to place , oriented to time, oriented to situation, CN II-XII grossly intact. ABSENT: motor sensory deficit Psychiatric exam: PRESENT: appropriate affect, normal mood. ABSENT: homicidal ideation, suicidal ideation Skin exam: PRESENT: dry, intact, warm, other - right hip incision is dry and intact. ABSENT: cyanosis, rash Results Laboratory Results: 05/04/17 04:08 05/04/17 04:08 Impressions: Hip/Pelvis X-Ray 05/01/17 00:00 IMPRESSION: Right hip fracture the level of the base of the femoral neck. Other findings as noted above Chest X-Ray 05/01/17 20:58 IMPRESSION: NO ACUTE RADIOGRAPHIC FINDING IN THE CHEST. Femur X-Ray 05/03/17 00:00 IMPRESSION: Intra procedural imaging and fluoro Fluoroscopy 05/03/17 00:00 IMPRESSION: Intra procedural imaging and fluoro Qualifiers PATEINT BEING DISCHARGED WITH ANY OF THE FOLLOWING DIAGNOSIS?: No Plan Discharge Plan: Home with
== END 2017-05-05 12:45 | disposition home health service (06) | DRG 481 ==
LOC: ER 19:24 → EH 05-02 00:27 → UNDOADMIN 05-02 00:27 → EH 05-02 03:44 → 4N 05-02 03:44 → EH 05-02 05:11 → 4N 05-02 05:11
PROVIDERS: ADMIT Family Medicine; ATTEND Family Medicine
PROC: 0QS604Z Reposition Right Upper Femur with Internal Fixation Device, Open Approach (ICD-10-PCS; principal; 2017-05-03 07:15)
DX: S72.041A Displaced fracture of base of neck of right femur, initial encounter for closed fracture (principal); N39.0 Urinary tract infection, site not specified; W18.30XA Fall on same level, unspecified, initial encounter; Y93.H2 Activity, gardening and landscaping; Y92.007 Garden or yard of unspecified non-institutional (private) residence as the place of occurrence of the external cause; Y99.8 Other external cause status; Z85.038 Personal history of other malignant neoplasm of large intestine; Z85.820 Personal history of malignant melanoma of skin; Z91.013 Allergy to seafood
CPT/HCPCS: 01230; 36415; 51702; 71010; 80048; 80053; 81001; 83735; 84484; 85025; 85027; 87040; 87086; 87088; 87186; 93005; 93010; 94799; 96374; 99285; G8978-GP; G8979-GP; J0690; J0696; J1170; J2250; J2704; J3010; J3490; J7120

== ENCOUNTER → 2018-01-11 | Outpatient (CLI) | payer MEDICARE, OTHER ==
--- NOTE | 2018-01-11 12:49 | RADIOLOGY REPORT (SQ) ---
EXAM DESCRIPTION: MRI LT UPPER JOINT WITHOUT COMPLETED DATE/TIME: 01/11/2018 11:13 am REASON FOR STUDY: PAIN IN LEFT WRIST M25.532 PAIN IN LEFT WRIST COMPARISON: None. TECHNIQUE: Left wrist images acquired and stored on PACS. Multiplanar images include fat sensitive sequences as T1, fluid sensitive sequences as FST2/STIR, cartilage sensitive sequences as FSPD, gradi ent echo sequences. LIMITATIONS: Limited clinical information. No radiographic correlation available to me. FINDINGS: BONE MARROW: Small intercarpal subchondral cysts or erosions, most pronounced along the sc apholunate articulation. Patchy marrow edema. Possible subtle changes in the radiocarpal articulati on as well. Findings could reflect inflammatory arthropathy. Changes in the thumb base are likely d egenerative. CARPAL ALIGNMENT AND ARTICULATION: Normal congruity of sigmoid notch at level of distal RUJ without p ositive or negative ulnar variance. Normal capitolunate angle. No widening of scapholunate articulati on. EFFUSION: No large effusion. Trace fluid is suggested. SCAPHOLUNATE LIGAMENT: Grossly intact without widening. LUNATE-TRIQUETRAL LIGAMENT: Grossly intact without widening. TFC COMPLEX: No tear evident. EXTRINSIC LIGAMENTS AND DISTAL RADIO-ULNAR JOINT: Limited assessment, grossly intact. 1-6 EXTENSOR COMPARTMENTS: Normal. Specifically no tendinopathy of the abductor pollicis longus or ex tensor pollicis brevis to suggest de Quervain's Syndrome. CARPAL TUNNEL AND MEDIAN NERVE: Normal volume and morphology of the carpal tunnel proximally at the l evel of the radiocarpal joint and distally at the hook of the hamate. No thickening or signal alterat ion of the median nerve. OTHER: Nonspecific soft tissue thickening with ill definition of tissue planes along the radial aspec t of the distal forearm, palm are tracking towards the thenar eminence. Intermediate T1 signal throu ghout this area without drainable fluid. IMPRESSION: 1. Suspect carpal arthropathy as above, possibly degenerative. However given the appea brady, inflammatory arthropathy is also or possibility. 2. Nonspecific soft tissue thickening along the palmar radial aspect of the wrist. Difficult to further characterize and further define, infiltr ative appearance. 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 Was this the site of tumor? Further evaluation with limited precontrast followed by post IV contrasted scanning may help to better define. TECHNICAL DOCUMENTATION: JOB ID: [id number] [employer]- All Rights Reserved Reading location - IP/workstation name: [email or web address]
== END ==
LOC: RAD 09:40
PROVIDERS: ATTEND Orthopaedic Surgery
DX: M25.532 Pain in left wrist (principal)

== ENCOUNTER → 2018-01-18 | Outpatient (CLI) | payer MEDICARE, OTHER ==
--- NOTE | 2018-01-18 12:26 | RADIOLOGY REPORT (SQ) ---
EXAM DESCRIPTION: HAND LEFT 3 VIEWS COMPLETED DATE/TIME: 01/18/2018 10:07 am REASON FOR STUDY: PAIN IN LEFT WRIST/LT HAND M79.642 PAIN IN LEFT HAND M25.532 PAIN IN LEFT WRIST COMPARISON: None. EXAM PARAMETERS: NUMBER OF VIEWS: Three views. TECHNIQUE: AP, lateral and oblique radiographic images acquired of the left hand. LIMITATIONS: None. FINDINGS: MINERALIZATION: Osteopenia. BONES: No acute fracture or dislocation. No worrisome bone lesions. JOINTS: Mild degenerative joint changes seen in the distal interphalangeal joints. SOFT TISSUES: No soft tissue swelling. No foreign body. OTHER: No other significant finding. IMPRESSION: Degenerative joint disease with osteopenia. No fracture. TECHNICAL DOCUMENTATION: JOB ID: [id number] [employer]- All Rights Reserved Reading location - IP/workstation name: [email or web address]
== END ==
LOC: OD 09:46
PROVIDERS: ATTEND Orthopaedic Surgery
DX: M25.532 Pain in left wrist (principal); M79.642 Pain in left hand

== ENCOUNTER → 2018-01-21 | Outpatient (CLI) | payer MEDICARE, OTHER ==
--- NOTE | 2018-01-22 08:43 | RADIOLOGY REPORT (SQ) ---
EXAM DESCRIPTION: MRI LT UPPER JOINT WITH COMPLETED DATE/TIME: 01/21/2018 5:52 pm REASON FOR STUDY: PAIN IN LEFT HAND, PAIN IN LEFT WRIST M25.532 PAIN IN LEFT WRIST COMPARISON: Precontrast wrist imaging performed on 01/11/2018. CONTRAST TYPE AND DOSE: 10 mL Prohance. RENAL FUNCTION: GFR 59 TECHNIQUE: Precontrast T1 fat saturated axial. Post-contrast axial T1 fat saturated as well as T1 f at saturated coronal and sagittal. FINDINGS: Soft tissues: Along the volar radial aspect of the wrist, site of soft tissue thickening noted previously, there is heterogeneous diffuse enhancement. No measurable or discrete mass. No dr ainable fluid collections are detected. No suspicious enhancement along any of the regional tendons. Bones: Limited evaluation on today's limited further imaging. As before, there is arthropathy with associated cysts or erosions. IMPRESSION: Diffuse soft tissue thickening along the volar radial aspect of the wrist. No discrete mass or drainable collections. Corresponding generalized infiltrative enhancement. Differential inc ludes scar, connective tissue disorder, infiltrative neoplasm among others. TECHNICAL DOCUMENTATION: JOB ID: [id number] [employer]- All Rights Reserved Reading location - IP/workstation name: [email or web address]
== END ==
LOC: RAD 16:32
PROVIDERS: ATTEND Orthopaedic Surgery
DX: M25.532 Pain in left wrist (principal); M79.642 Pain in left hand
CPT/HCPCS: 82565

== ENCOUNTER 2018-02-05 08:37 | Inpatient (IN) | payer MEDICARE, OTHER ==
[2018-02-01 10:25] LABS: APPEARANCE,URINE SLIGHTLY-CLOUDY; BILIRUBIN,URINE NEGATIVE (NEGATIVE); COLOR,URINE YELLOW; GLUCOSE, URINE NEGATIVE (NEGATIVE); KETONES,URINE NEGATIVE (NEGATIVE); LEUKOCYTE ESTERASE,URINE LARGE (NEGATIVE); NITRITE,URINE POSITIVE (NEGATIVE); PROTEIN,URINE NEGATIVE (NEGATIVE); URINE SPECIFIC GRAVITY 1.005; UROBILINOGEN,URINE NEGATIVE mg/dL (<2.0)
--- NOTE | 2018-02-01 10:32 | EKG REPORT ---
SEVERITY:- ABNORMAL ECG - SINUS RHYTHM LEFT ANTERIOR FASCICULAR BLOCK LOW VOLTAGE IN FRONTAL LEADS : Confirmed by: Lore Rosa 01-Feb-2018 10:31:36
[2018-02-01 10:36] LABS: ABSOLUTE BASOPHILS # (AUTO) 0.1 10^3/uL (0.0-0.2); ABSOLUTE EOSINOPHILS # (AUTO) 0.4 10^3/uL (0.0-0.6); ABSOLUTE LYMPHOCYTES (AUTO) 0.9 10^3/uL (0.5-4.7); ABSOLUTE MONOCYTES (AUTO) 0.7 10^3/uL (0.1-1.4); BASOPHILS % (AUTO) 0.5 % (0-2); EOSINOPHILS % (AUTO) 3.7 % (0-6); HEMATOCRIT 39.5 % (36.0-47.0); HEMOGLOBIN 13.4 g/dL (12.0-15.5); LYMPHOCYTES % (AUTO) 8.4 % (13-45); MEAN CORPUSCULAR HEMOGLOBIN 28.3 pg (27.0-33.4); MEAN CORPUSCULAR HGB CONC 33.8 g/dL (32.0-36.0); MEAN CORPUSCULAR VOLUME 84 fl (80-97); PLATELET COUNT 276 10^3/uL (150-450); RED BLOOD COUNT 4.72 10^6/uL (3.72-5.28); RED CELL DISTRIBUTION WIDTH 13.5 % (11.5-14.0); SEGMENTED NEUTROPHILS % (AUTO) 81.4 % (42-78); TOTAL CELLS COUNTED % (AUTO) 100 %; WHITE BLOOD COUNT 11.1 10^3/uL (4.0-10.5)
--- NOTE | 2018-02-01 10:49 | RADIOLOGY REPORT (SQ) ---
EXAM DESCRIPTION: CHEST PA/LATERAL COMPLETED DATE/TIME: 02/01/2018 10:33 am REASON FOR STUDY: PRE OP COMPARISON: April 2017 EXAM PARAMETERS: NUMBER OF VIEWS: two views TECHNIQUE: Digital Frontal and Lateral radiographic views of the chest acquired. RADIATION DOSE: NA LIMITATIONS: none FINDINGS: LUNGS AND PLEURA: No pneumothorax. No pleural effusion. No consolidations. There is a hancock ggestion of a tiny nodular density projected in the right lung apex which may represent confluent den sities. I would recommend correlation with prior radiographs or shallow oblique views of the chest f or further evaluation. Chest CT scan may also be of value for further evaluation. Chronic appearing changes are identified. I cannot exclude a component of obstructive lung disease MEDIASTINUM AND HILAR STRUCTURES: No masses or contour abnormalities. HEART AND VASCULAR STRUCTURES: Heart normal size. No evidence for failure. BONES: No acute findings. HARDWARE: None in the chest. OTHER: No other significant finding. IMPRESSION: There is suggestion of a tiny nodular density projected in the right lung apex as noted above. Follow-up is recommended. No acute consolidations or pleural effusions. Other findings as n oted above TECHNICAL DOCUMENTATION: JOB ID: [id number] [employer]- All Rights Reserved Reading location - IP/workstation name: [email or web address]
[2018-02-01 11:13] LABS: ANION GAP 10 (5-19); BLOOD UREA NITROGEN 12 mg/dL (7-20); CALCIUM 9.8 mg/dL (8.4-10.2); CARBON DIOXIDE 27 mmol/L (22-30); CHLORIDE 104 mmol/L (98-107); GLUCOSE 105 mg/dL (75-110); POTASSIUM 4.5 mmol/L (3.6-5.0); SODIUM 141.3 mmol/L (137-145)
[~2018-02-05 08:37] MED LIST: CEFAZOLIN 2 GM/D5W RTU 2 GM/50 ML RTUPB IV SCH; CEFAZOLIN SODIUM 2 GM in NORMAL SALINE 100 ML IV PRN; LIDOCAINE 0.5% INJ-PF (5 MG/ML) 50 ML SDV SUBCUT PRN
[2018-02-05] MEDS ORDERED: DEXAMETHASONE SOD PHOSPHATE INJ 4 MG/1 ML VIAL ONE (10:57)
[2018-02-05] MEDS ORDERED: PHENYLEPHRINE HCL INJ/PF 10 MG/1 ML SDV ONE (10:57)
[2018-02-05] MEDS ORDERED: ONDANSETRON HCL INJ/PF 4 MG/2 ML SDV ONE (10:57)
[2018-02-05] MEDS ORDERED: LIDOCAINE 2% INJ-PF (20 MG/ML) 2 ML AMPUL ONE (10:57)
[2018-02-05] MEDS ORDERED: SUCCINYLCHOLINE CHLORIDE INJ 200 MG/10 ML VIAL ONE (10:57)
[2018-02-05] MEDS ORDERED: BUPIVACAINE HCL 0.5 % INJ/PF 30 ML SDV ONE (13:35)
[2018-02-05] MEDS: LACTATED RINGERS 1000 ML IV PRN ×2 (14:40→20:53)
[2018-02-05] MEDS ORDERED: MIDAZOLAM 2 MG/2 ML INJ ONE ×2 (14:48→17:43)
[2018-02-05] MEDS ORDERED: PROPOFOL INJ 200 MG/20 ML VIAL IV ONE (14:48)
[2018-02-05] MEDS ORDERED: FENTANYL CITRATE INJ/PF 250 MCG/5 ML AMPULE ONE (14:48)
[2018-02-05] MEDS ORDERED: ACETAMINOPHEN 100 ML IV ONE ×2 (14:48→22:40)
[2018-02-05] MEDS ORDERED: DIPHENHYDRAMINE HCL 50 MG/ML VIAL IV PRN ×2 (15:58→16:40)
[2018-02-05] MEDS ORDERED: MEPERIDINE HCL/PF INJ 25 MG/1 ML DISP.SYRIN IV PRN (15:58)
[2018-02-05] MEDS ORDERED: FENTANYL CITRATE INJ/PF 100 MCG/2 ML AMPUL IV PRN (15:58)
[2018-02-05] MEDS ORDERED: MORPHINE SULFATE 10 MG/ML INJ IV PRN ×3 (15:58→16:40)
[2018-02-05] MEDS ORDERED: PROMETHAZINE HCL INJ 25 MG/1 ML VIAL IV PRN (15:58)
[2018-02-05] MEDS ORDERED: MAG HYDROX/AL HYDROX/SIMETH SUSP 30 ML UDCUP PO PRN (16:40)
[2018-02-05] MEDS ORDERED: OXYCODONE HCL IR 5 MG TABLET PO PRN (16:40)
[2018-02-05] MEDS ORDERED: MORPHINE SULFATE 10 MG/ML INJ IM PRN (16:40)
[2018-02-05] MEDS ORDERED: ONDANSETRON HCL INJ/PF 4 MG/2 ML SDV IV PRN (16:40)
[2018-02-05] MEDS ORDERED: ZOLPIDEM TARTRATE 5 MG TABLET PO PRN (16:40)
[2018-02-05] MEDS ORDERED: ONDANSETRON 4 MG TAB.RAPDIS PO PRN (16:40)
[2018-02-05] MEDS ORDERED: ACETAMINOPHEN 325 MG TABLET PO PRN (16:40)
[2018-02-05] MEDS ORDERED: ALBUTEROL SULFATE 0.083% NEB 2.5 MG/3 ML AMPUL NEB ONE (16:41)
--- NOTE | 2018-02-05 16:41 | Progress Note ---
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 Patient underwent skin grafting with coverage unfortunately patient's carcinoma returned. Patient attempted multiple rounds of radiation without resolution. Ultimately patient's carcinoma developed necrosis and worsening. 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 We discussed treatment options including obtaining a PET scan to evaluate for possible lymph node involvement given patient's lymphadenopathy and areas of metastasis. I recommended obtaining a PET scan to determine site of metastasis given the fact patient has bony metastasis however wrist amputation is likely required however level of amputation is indeterminate given lack of PET scan. Furthermore patient understood the possibility of metastasis and increased mortality. Despite these facts patient is adamantly improved refused further workup and has elected to proceed with amputation given her discomfort. Risks and benefits including unknown area of metastasis which may require future surgical intervention or higher level of amputation, postoperative pain, mortality and any unforeseen complication. Once again these risks and benefits and alternative options have been explained to the patient she has verbalized understanding consented for the procedure.
[2018-02-05] MEDS ORDERED: FENTANYL CITRATE INJ/PF 100 MCG/2 ML AMPUL ONE ×2 (16:53→17:44)
--- NOTE | 2018-02-05 16:53 | Operative Report ---
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 POSTOPERATIVE DIAGNOSIS: Same OPERATION: Left forearm amputation SURGEON: KARTHIKEYAN ARAIZA 1ST SPEECH COACH: CARYL SMALL - Required for retractor placement, hemostasis and wound closure ANESTHESIA: GA TISSUE REMOVED OR ALTERED: Left distal radius including soft tissue and bone COMPLICATIONS: None ESTIMATED BLOOD LOSS: Less than PROCEDURE: Indication for above procedure: 83-year-old female with known history of high-grade squamous cell carcinoma of her left wrist. Patient underwent skin grafting with coverage unfortunately patient's carcinoma returned. Patient attempted multiple rounds of radiation without resolution. Ultimately patient's carcinoma developed necrosis and worsening. 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 We discussed treatment options including obtaining a PET scan to evaluate for possible lymph node involvement given patient's lymphadenopathy and areas of metastasis. I recommended obtaining a PET scan to determine site of metastasis given the fact patient has bony metastasis however wrist amputation is likely required however level of amputation is indeterminate given lack of PET scan. Furthermore patient understood the possibility of metastasis and increased mortality. Despite these facts patient is adamantly improved refused further workup and has elected to proceed with amputation given her discomfort. Risks and benefits have been explained to the patient patient verbalized understanding consented for the procedure. Procedure In Detail: Patient was seen and evaluated in the preoperative holding area. The LEFT upper extremity was initialized and marked. Patient received 2g of Ancef IV for bacterial prophylaxis. Patient was taken back to the operative room where transferred to the operative table and placed under general anesthesia. Once they were adequately anesthetized a nonsterile tourniquet was placed on the upper extremity. A surgical team debriefing was performed ensuring all instrumentation was available, the surgical procedure was discussed with possible concerns reviewed. The upper extremity was prepped with Betadine and draped in a sterile fashion. A timeout was done identifying correct patient, procedure and extremity everyone in attendance agree with this and verbalized no concerns. The extremity was elevated and the tourniquet was inflated to 250 mmHg. [place] skin incision was made along the midforearm proximal to a small skin lesion which may represent squamous cell carcinoma. Blunt dissection was performed through the soft tissues. Any large veins were clipped. Any small venous branches were then coagulated with cautery. I then identified the superficial radial nerve. 0.5% Marcaine was injected into the nerve and the nerve was then resected proximally. Volarly the ulnar neurovascular bundle was identified. The nerve was injected with 0.5% Marcaine and neurectomy performed proximal to planned bone cut. Similarly the median nerve was identified within the musculature of the FDS and injected with 0.5% Marcaine and a neurectomy was performed proximal to the tendon bone cut. The radial artery was then isolated and a vascular clip placed. The AIN and PIN nerves were also identified and retracted performed proximal to the bone cut. The intraosseous arteries were identified and a vascular clip placed. Once all the neurovascular structures were identified and clamped. The volar superficial and deep musculature was cut 1 cm distal to the anticipated bone cut. The dorsal musculature and tendons were then cut 1 cm distal to the planned bone cut. The radius and ulnar were then osteotomized with saline approximately 1.5 cm to 2 cm proximal to the skin incision. The amputated extremity was then sent to pathology for further evaluation of patient's squamous cell carcinoma. With 2 drill holes in the radius and ulna, myodesis was performed utilizing #2 FiberWire through the volar deep compartment. This provided adequate coverage to the bone stump to avoid postoperative irritation. The tourniquet was then deflated. Any remaining bleeding was controlled with cautery until the wound was dry. The superficial volar and extensor compartments were then closed with 0 Vicryl suture providing further coverage. The subcutaneous tissues were closed with interrupted 3-0 Monocryl suture. Skin edges were contoured to avoid any dog ear. Skin was closed with interrupted 3-0 nylon suture. Wound was dressed with Xeroform 4 x 4's and loosely applied soft bandage. Sponge counts, instrument counts, needle counts counts were correct. Patient was then awoken from anesthesia. Transferred from the operating room table to the operating room stretcher. There was no intraoperative complications patient tolerated procedure well stable to PACU. Postoperative plan: Patient will follow-up the office in 2 weeks for wound check. Postoperatively she has been set up with a overlay operator for placement of stump family literacy coordinator.
[2018-02-05] MEDS: FENTANYL CITRATE INJ/PF 100 MCG/2 ML AMPUL IV PRN ×6 (16:58→18:10)
[2018-02-05] MEDS ORDERED: MORPHINE SULFATE 10 MG/ML INJ ONE (17:43)
[2018-02-05] MEDS: PREGABALIN 75 MG CAPSULE PO SCH (20:51)
[2018-02-05] MEDS: MORPHINE SULFATE 10 MG/ML INJ IV PRN (20:52)
[2018-02-05] MEDS ORDERED: RIVAROXABAN 10 MG TABLET PO SCH (22:00)
[2018-02-05] MEDS: OXYCODONE HCL SR 10 MG TABLET PO SCH (22:09)
[2018-02-06] MEDS: MORPHINE SULFATE 10 MG/ML INJ IV PRN (03:49)
[2018-02-06] MEDS ORDERED: VANCOMYCIN HCL 1,000 MG in NORMAL SALINE 250 ML IV ONE (04:40)
[2018-02-06] MEDS ORDERED: LANSOPRAZOLE 30 MG TAB.RAP.DR PO SCH (06:00)
[2018-02-06 07:10] LABS: HEMATOCRIT 37.8 % (36.0-47.0); HEMOGLOBIN 12.5 g/dL (12.0-15.5); MEAN CORPUSCULAR HEMOGLOBIN 27.5 pg (27.0-33.4); MEAN CORPUSCULAR HGB CONC 32.9 g/dL (32.0-36.0); MEAN CORPUSCULAR VOLUME 84 fl (80-97); PLATELET COUNT 271 10^3/uL (150-450); RED BLOOD COUNT 4.53 10^6/uL (3.72-5.28); RED CELL DISTRIBUTION WIDTH 13.3 % (11.5-14.0); WHITE BLOOD COUNT 11.2 10^3/uL (4.0-10.5)
[2018-02-06 07:18] LABS: ANION GAP 11 (5-19); BLOOD UREA NITROGEN 17 mg/dL (7-20); CALCIUM 9.5 mg/dL (8.4-10.2); CARBON DIOXIDE 30 mmol/L (22-30); CHLORIDE 99 mmol/L (98-107); GLUCOSE 167 mg/dL (75-110); POTASSIUM 4.6 mmol/L (3.6-5.0); SODIUM 139.9 mmol/L (137-145)
[2018-02-06] MEDS: OXYCODONE HCL SR 10 MG TABLET PO SCH (10:01)
[2018-02-06] MEDS: PREGABALIN 75 MG CAPSULE PO SCH (10:01)
--- NOTE | 2018-02-06 13:16 | Discharge Summary ---
Discharge Summary (SDC) - Discharge Final Diagnosis: Metastatic high-grade squamous cells carcinoma with metastases to left wrist Date of Surgery: 02/05/18 Discharge Date: 02/06/18 Condition: Good Treatment or Instructions: Schedule Follow Up w/ Dr. Karthikeyan Araiza @ [facility] for Surgery to be seen in 10-14 days or as scheduled [place]: [place]: [place]: May remove dressing on postop day #3, keep incision covered and dry. Ice and elevate May begin finger range of motion attempting to make full fist. Stool softener of choice when on pain medication. Prescriptions: Gabapentin 100 mg PO TID PRN #60 capsule PRN Reason: Oxycodone HCl/Acetaminophen [Percocet 7.5-325 mg Tablet] 1 - 2 tab PO ASDIR PRN #35 tab PRN Reason: Referrals: CRISTIAN HURTADO PA-C [Primary Care Provider] - KARTHIKEYAN ARAIZA DO [ACTIVE STAFF] - 02/18/18 1:10 pm (Please keep your scheduled follow up appointment with Dr Araiza on 02/18/18 at 1:10 pm. If you have any questions please call the office directly at .) Discharge Diet: As Tolerated, Regular Respiratory Treatments at Home: Deep Breathing/Coughing Discharge Activity: No Lifting Over 10 Pounds, No Lifting/Push/Pulling Home Care Assistance: Home Health Activities Provided by Home Health Agency: Occupational Therapy Report the Following to Your Physician Immediately: Shortness of Breath, Fever over 101 Degrees, Unusual Bleeding, Redness, Swelling, Warmth, Drainage-Yellow
--- NOTE | 2018-02-06 13:24 | PDOC PROGRESS REPORT ---
Subjective Progress Note for:: 02/06/18 Subjective:: 83-year-old white female with diagnosis of metastatic high-grade squamous cell carcinoma to the left wrist 1 day status post left forearm amputation. Patient sitting upright in hospital bed eating lunch. She notes she is comfortable and has occasional pain however pain is alleviated with analgesic medication and ice packs placed on the invitation site. She denies tingling or numbness and is eager to be discharged from the hospital. No chest pain shortness of breath. Reason For Visit: METASTATIC HIGH GRADE SQUAMOUS CELL Physical Exam Vital Signs: Temp Pulse Resp BP Pulse Ox 36.8 C 79 18 148/72 H 96 02/06/18 12:07 02/06/18 12:07 02/06/18 12:07 02/06/18 12:07 02/06/18 12:07 Intake & Output 02/05/18 02/06/18 02/07/18 06:59 06:59 06:59 Intake Total 4025 Output Total 850 Balance 3175 Weight 62.6 kg General appearance: PRESENT: no acute distress, well-developed, well-nourished Head exam: PRESENT: atraumatic, normocephalic Eye exam: PRESENT: EOMI Respiratory exam: PRESENT: unlabored Pulses: PRESENT: normal dorsalis pedis pul, +2 pedal pulses bilateral Vascular exam: PRESENT: normal capillary refill Additional comments: Postoperative dressing on forearm stump is clean dry and intact. This is left in place. She is nontender to palpation. Exhibits appropriate strength range of motion of shoulder and left elbow at this time. No pain noted on initiation of motion. Minimal edema about the amputation site and proximal forearm. She has +2 axillary pulses bilaterally less than 2 second capillary refill to fingers on right hand. No sensory or motor deficits at this time. Musculoskeletal exam: PRESENT: ambulatory Additional comments: Patient is ambulatory. She can complete personal hygiene and ADLs status post amputation. It was advised the patient be discharged to a rehab facility, however she declined. Patient notes that she has enough help with her and community around her at home that she believes she will fare better postoperatively there. I am in agreement with this plan at this time as patient is competent with her decision. She will however meet with prosthetic specialist to have a left forearm prosthesis placed on stump. Neurological exam: PRESENT: alert, awake, oriented to person, oriented to place , oriented to time, oriented to situation, CN II-XII grossly intact. ABSENT: motor sensory deficit Psychiatric exam: PRESENT: appropriate affect, normal mood. ABSENT: homicidal ideation, suicidal ideation Skin exam: PRESENT: dry, intact, warm. ABSENT: cyanosis, rash Results Laboratory Results: 02/06/18 06:36 02/06/18 06:36 02/06/18 02/06/18 06:36 06:36 WBC 11.2 H RBC 4.53 Hgb 12.5 Hct 37.8 MCV 84 MCH 27.5 MCHC 32.9 RDW 13.3 Plt Count 271 Sodium 139.9 Potassium 4.6 Chloride 99 Carbon Dioxide 30 Anion Gap 11 BUN 17 Creatinine 0.85 Est GFR ( Amer) > 60 Est GFR (Non-Af Amer) > 60 Glucose 167 H Calcium 9.5 Impressions: Chest X-Ray 02/01/18 10:19 IMPRESSION: There is suggestion of a tiny nodular density projected in the right lung apex as noted above. Follow-up is recommended. No acute consolidations or pleural effusions. 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 Patient managing pain, mobility and range of motion very well postoperatively. Surgical site and postoperative dressing are clean dry and intact. Bandages left in place. She will be discharged to her home today. Discharge orders have been written and signed at this point. She declined discharge to rehab facility. Upon discharge she will follow-up with Dr. Park and Thomas HERNANDEZ at [facility] for surgery 2 weeks postoperatively for reevaluation. She will also follow-up with prosthetic specialist for placement of left forearm prosthetic.
[2018-02-06 13:33] VITALS: BP 132/65
--- NOTE | 2018-02-08 15:34 | PDOC DISCHARGE SUMMARY ---
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 Is this a current diagnosis for this admission?: Yes - Additional Information Discharge Diet: As Tolerated, Regular Discharge Activity: Activity As Tolerated, Balance Activity w/Rest, No Driving, No Lifting Over 10 Pounds, No Lifting/Push/Pulling Prescriptions: Gabapentin 100 mg PO TID PRN #60 capsule PRN Reason: Oxycodone HCl/Acetaminophen [Percocet 7.5-325 mg Tablet] 1 - 2 tab PO ASDIR PRN #35 tab PRN Reason: Home Medications: Gabapentin 100 mg PO TID PRN #60 capsule 02/05/18 Oxycodone HCl/Acetaminophen [Percocet 7.5-325 mg Tablet] 1 - 2 tab PO ASDIR PRN #35 tab 02/05/18 History of Present Illness History of Present Illness: CHALO LI is a 83 year old female with high-grade squamous cell carcinoma with metastases to distal radius and ulna of right wrist. After undergoing many rounds of chemotherapy and denying a PET scan, was admitted to the hospital through the operating room to undergo right forearm amputation. Hospital Course Hospital Course: 83-year-old white female who was admitted to the hospital through the operating room who underwent uncomplicated right distal forearm amputation. She was taken to PACU in satisfactory condition. She was then transferred to the surgical floor where she stayed for 1 midnight. She was seen by nursing and Dr. Park for pain management and wound care. Her pain is well managed and she has denied Occupational Therapy services. She will be discharged on February 06, 2018 1 day postoperatively to her home. Physical Exam Vital Signs: Temp Pulse Resp BP Pulse Ox 36.8 C 79 18 132/65 H 96 02/06/18 13:25 02/06/18 13:25 02/06/18 13:25 02/06/18 13:25 02/06/18 13:25 General appearance: PRESENT: no acute distress, well-developed, well-nourished Head exam: PRESENT: atraumatic, normocephalic Eye exam: PRESENT: EOMI Respiratory exam: PRESENT: unlabored Pulses: PRESENT: normal dorsalis pedis pul, +2 pedal pulses bilateral Vascular exam: PRESENT: normal capillary refill Additional comments: Patient sitting upright in hospital bed with amputation stump elevated on multiple pillows and with ice packs placed. Her postop dressings are clean dry and intact. These are left in place. She is nontender to palpation. She notes some pain on initiation of motion. She has brisk capillary refill to skin of proximal forearm as well as fingers on contralateral extremity. +2 radial pulses within the antecubital region of right arm. No sensory or motor deficits noted, appropriate range of motion. Musculoskeletal exam: PRESENT: ambulatory Additional comments: Although acute. Additional therapy was consulted as well as rehab facility services patient has denied both at this time. She notes she has a "great community around me at home". Although importance of occupational therapy postoperatively was stressed patient and are confident that they will manage her postoperative regimen. Patient was however informed that she will be referred to a prosthetic specialist postoperatively for placement of prosthesis on right extremity amputation site. She voiced understanding and is in agreement with this plan. Neurological exam: PRESENT: alert, awake, oriented to person, oriented to place , oriented to time, oriented to situation, CN II-XII grossly intact. ABSENT: motor sensory deficit Psychiatric exam: PRESENT: appropriate affect, normal mood. ABSENT: homicidal ideation, suicidal ideation Skin exam: PRESENT: dry, intact, warm. ABSENT: cyanosis, rash Results Laboratory Results: 02/06/18 06:36 02/06/18 06:36 Impressions: Chest X-Ray 02/01/18 10:19 IMPRESSION: There is suggestion of a tiny nodular density projected in the right lung apex as noted above. Follow-up is recommended. No acute consolidations or pleural effusions. Other findings as noted above Qualifiers - * P[place]INT BEING DISCHARGED WITH ANY OF THE FOLLOWING DIAGNOSIS?: No Plan Discharge Plan: 84-year-old white female with metastatic high-grade squamous cell carcinoma one day status post right distal forearm amputation. Patient's postoperative compression dressing is clean dry and intact. This is left in place. She is doing very well postoperatively and her pain is under control. She will be discharged from the hospital today to her home with her . It was stressed to the patient the importance of follow-up with prosthetic specialist. She voiced understanding and is in agreement. She will follow-up with Dr. Park at [facility] surgery 2 weeks postoperatively for reevaluation and suture removal. Time Spent: Less than 30 Minutes
== END 2018-02-06 14:05 | disposition home or self-care (01) | DRG 476 ==
LOC: INOR 13:13 → 2N 19:05
PROVIDERS: ADMIT Orthopaedic Surgery; ATTEND Orthopaedic Surgery
PROC: 0X6 Anatomical Regions, Upper Extremities, Detachment (ICD-10-PCS; principal; 2018-02-05 16:00)
DX: C79.51 Secondary malignant neoplasm of bone (principal); C44.92 Squamous cell carcinoma of skin, unspecified; M79.642 Pain in left hand; F17.210 Nicotine dependence, cigarettes, uncomplicated
CPT/HCPCS: 1840; 36415; 71046; 80048; 81001; 85025; 85027; 88307; 88311; 93005; 93010; 94799; J0131; J0330; J0690; J1100; J2250; J2270; J2370; J2405; J2704; J3010; J3370; J3490; J7050; J7120

== ENCOUNTER 2018-05-06 14:11 | Emergency (ER) | payer MEDICARE, OTHER ==
--- NOTE | 2018-05-06 14:50 | ER Document Report ---
ED Medical Screen (RME) - General Stated Complaint: WEAKNESS Time Seen by Provider: 05/06/18 14:46 Notes: RAPID MEDICAL EVALUATION DISCLOSURE I have seen this patient as part of a Rapid Medical Evaluation and, if applicable, placed any initially appropriate orders. The patient will be seen and fully evaluated, including a full history and physical exam, by a provider ( in Main ED or Fast Track) when a room becomes available. 83-year-old female PMH left upper extremity bone cancer status post amputation here with family who states she has had generalized weakness and nausea vomiting over the past 1 week. They do not know of any pain however the patient tells me she has some abdominal pain. Patient has no other complaints and is also a poor historian so unable to obtain accurate history or review of systems from her. EXAM Large left superior lateral chest wall mass with no significant overlying erythema or drainage Mild to moderate diffuse abdominal TTP No rigidity TRAVEL OUTSIDE OF THE [place] IN LAST 30 DAYS: No - Related Data Allergies/Adverse Reactions: fish derived Allergy (Verified 02/05/18 15:14) shellfish derived Allergy (Verified 02/05/18 15:14) Past Medical History - Past Medical History Cardiac Medical History: Denies: Hx Congestive Heart Failure, Hx DVT, Hx Heart Attack, Hx Hypercholesterolemia, Hx Hypertension, Hx Pulmonary Embolism Pulmonary Medical History: Reports: Hx Pneumonia Denies: Hx Asthma, Hx Bronchitis, Hx COPD, Hx Respiratory Failure, Hx Sleep Apnea, Hx Tuberculosis Neurological Medical History: Denies: Hx Seizures Endocrine Medical History: Denies: Hx Diabetes Mellitus Type 1, Hx Diabetes Mellitus Type 2, Hx Hyperthyroidism, Hx Hypothyroidism Malignancy Medical History: Reports: Hx Colorectal Cancer - Segmental colectomy , 2007, Hx Skin Cancer - Melanoma excised from face and left wrist. Denies: Hx Lung Cancer GI Medical History: Denies: Hx Cirrhosis, Hx Crohn's Disease, Hx Gastroesophageal Reflux Disease, Hx Hepatitis, Hx Hiatal Hernia, Hx Irritable Bowel, Hx Liver Failure, Hx Pancreatitis, Hx Ulcer Musculoskeltal Medical History: Denies Hx Arthritis, Denies Hx Fibromyalgia, Denies Hx Muscular Dystrophy Psychiatric Medical History: Denies: Hx Depression Traumatic Medical History: Reports: Hx Fractures - RIGHT HIP Infectious Medical History: Denies: Hx C-Diff, Hx Hepatitis, Hx MRSA Past Surgical History: Reports: Hx Bowel Surgery - BOWEL RESECTION, Hx Section - X2, Hx Hysterectomy, Other - Segmental colectomy, carcinoma; excision of melanoma from face, left wrist. Denies: Hx Appendectomy, Hx Cholecystectomy , Hx Colostomy, Hx Coronary Artery Bypass Graft, Hx Gastric Bypass Surgery, Hx Herniorrhaphy, Hx Mastectomy, Hx Tonsillectomy, Hx Tubal Ligation - Immunizations History of Influenza Vaccine for 07/2017 - 12/2017 Season: Yes Influenza Administration Date for 07/2017 - 12/2017 Season: 07/29/17 Doctor's Discharge - Discharge Referrals: CRISTIAN HURTADO PA-C [Primary Care Provider] - Follow up as needed
--- NOTE | 2018-05-06 15:04 | ER Document Report ---
ED Dizziness/Weakness <NGA MARAVILLA - Last Filed: 05/07/18 00:06> - General Mode of Arrival: Medic Information source: Patient, Relative TRAVEL OUTSIDE OF THE [place] IN LAST 30 DAYS: Yes <LEIDY ACOSTA - Last Filed: 05/07/18 14:26> <MATILDE AWAD - Last Filed: 05/07/18 18:12> - General Chief Complaint: General Weakness Stated Complaint: WEAKNESS Time Seen by Provider: 05/06/18 14:46 Notes: 83 y.o female with high-grade squamous cell carcinoma with metastases and a PSHx of left forearm amputation on February 05 2018 presents to the ED via EMS with generalized weakness and vomiting of onset this morning. Pt's daughter at bedside reports that she has had worsening weakness for the past week or so but that she was eating well and keeping her food down until this morning when she woke and she was more weak than the past several days and began vomiting. Pt reports that her breathing is ok. Daughter denies any known hx of Afib. She notes a lump to the Pt's LT arm pit and upper LT chest region but does not know when the lump presented originally. (LEIDY ACOSTA) - Related Data Allergies/Adverse Reactions: fish derived Allergy (Verified 02/05/18 15:14) shellfish derived Allergy (Verified 02/05/18 15:14) Past Medical History - Social History Family History: Reviewed & Not Pertinent - Past Medical History Cardiac Medical History: Denies: Hx Congestive Heart Failure, Hx DVT, Hx Heart Attack, Hx Hypercholesterolemia, Hx Hypertension, Hx Pulmonary Embolism Pulmonary Medical History: Reports: Hx Pneumonia Denies: Hx Asthma, Hx Bronchitis, Hx COPD, Hx Respiratory Failure, Hx Sleep Apnea, Hx Tuberculosis Neurological Medical History: Denies: Hx Seizures Endocrine Medical History: Denies: Hx Diabetes Mellitus Type 1, Hx Diabetes Mellitus Type 2, Hx Hyperthyroidism, Hx Hypothyroidism Malignancy Medical History: Reports: Hx Colorectal Cancer - Segmental colectomy , 2007, Hx Skin Cancer - Melanoma excised from face and left wrist. Denies: Hx Lung Cancer GI Medical History: Denies: Hx Cirrhosis, Hx Crohn's Disease, Hx Gastroesophageal Reflux Disease, Hx Hepatitis, Hx Hiatal Hernia, Hx Irritable Bowel, Hx Liver Failure, Hx Pancreatitis, Hx Ulcer Musculoskeltal Medical History: Denies Hx Arthritis, Denies Hx Fibromyalgia, Denies Hx Muscular Dystrophy Psychiatric Medical History: Denies: Hx Depression Traumatic Medical History: Reports: Hx Fractures - RIGHT HIP Infectious Medical History: Denies: Hx C-Diff, Hx Hepatitis, Hx MRSA Past Surgical History: Reports: Hx Bowel Surgery - BOWEL RESECTION, Hx Section - X2, Hx Hysterectomy, Other - Segmental colectomy, carcinoma; excision of melanoma from face, left wrist. Denies: Hx Appendectomy, Hx Cholecystectomy , Hx Colostomy, Hx Coronary Artery Bypass Graft, Hx Gastric Bypass Surgery, Hx Herniorrhaphy, Hx Mastectomy, Hx Tonsillectomy, Hx Tubal Ligation - Immunizations Hx Pneumococcal Vaccination: 10/29/12 <LEIDY ACOSTA - Last Filed: 05/07/18 14:26> - Social History Smoking Status: Current Every Day Smoker <MATILDE AWAD - Last Filed: 05/07/18 18:12> Review of Systems - Review of Systems Constitutional: See HPI, Weakness, Other - Chest wall/LUE with lump of unknown onset EENT: No symptoms reported Cardiovascular: No symptoms reported Respiratory: See HPI. denies: Short of breath Gastrointestinal: See HPI, Vomiting. denies: Poor appetite Genitourinary: No symptoms reported Female Genitourinary: No symptoms reported Musculoskeletal: No symptoms reported Skin: No symptoms reported Hematologic/Lymphatic: No symptoms reported Neurological/Psychological: No symptoms reported -: Yes All other systems reviewed and negative <LEIDY ACOSTA - Last Filed: 05/07/18 14:26> Physical Exam <NGA MARAVILLA - Last Filed: 05/07/18 00:06> <LEIDY ACOSTA - Last Filed: 05/07/18 14:26> <MATILDE AWAD - Last Filed: 05/07/18 18:12> - Vital signs Vitals: Resp Pulse Ox 20 94 05/06/18 15:04 05/06/18 15:04 - Notes Notes: Physical Exam: General: Alert. HEENT: Normocephalic. Atraumatic. PERRL. Extraocular movements intact. Mucus membranes are dry. Neck: Supple. Non-tender. Respiratory: No respiratory distress. Clear and equal breath sounds bilaterally. Cardiovascular: Irregularly irregular rate and rhythm. Abdominal: Active Bowel Sounds. Abd bulging to the left. Diffuse tenderness to palpation, worse to the LT sided abd. Pt denies any pain but winces with palpation. Back: Non-tender. No deformity or step off. Extremities: Moves all four extremities. Upper extremities: RUE normal. LUE amputation above the elbow (LT forearm amputation on February 05 2018). LT upper lateral chest extending to axilla with a large mass of unknown onset, not fluctuant. Lower extremities: Normal inspection. No edema. Normal ROM. Neurological: Normal cognition. AAOx3. Normal speech. Psychological: Normal affect. Normal Mood. Skin: Warm. Dry. Normal color. (LEIDY ACOSTA) Course - Laboratory Result Diagrams: 05/06/18 15:19 05/06/18 15:19 - Diagnostic Test Radiology reviewed: Reports reviewed - CT scan show bilateral ureteral obstruction with hydronephrosis and hydroureter. Multiple pulmonary nodules consistent with metastatic disease. Large mass in the left anterior axilla consistent with metastatic disease. - EKG Interpretation by Me EKG shows normal: Sinus rhythm, [place], Intervals, QRS Complexes, ST-T Waves Rate: Tachycardia - 122 Rhythm: Arrthymia Ash[place]/QRS: LAHB/LAFB - Consults Dr. Whiting Consulted provider: other - Will accept at [facility] when a bed becomes available. - Transfer of Care Care transferred to following provider: Dr. Copeland <NGA MARAVILLA - Last Filed: 05/07/18 00:06> - Laboratory Result Diagrams: 05/06/18 15:19 05/06/18 15:19 <LEIDY ACOSTA - Last Filed: 05/07/18 14:26> - Laboratory Result Diagrams: 05/07/18 16:24 05/07/18 16:24 <MATILDE AWAD - Last Filed: 05/07/18 18:12> - Re-evaluation Re-evalutation: 05/06/18 18:32 I had called [facility] to transfer the patient as we do not have urology customer relations representative here. The hospitalist did call but would not wait on the phone for them to get me to the phone. Shortly afterwards someone called back from [facility] and told the school attendance secretary that they do not have beds now and I am told it sounded like there had been a bed but because I did not come the phone right away the bed went to someone else. I have no way to confirm that because no one is answering the phone when I call up there and I left a message and no one returned my call. I have called [facility] to try to transfer the patient there. 05/06/18 23:04 I just went to check on the patient and found her resting comfortably, her blood pressure reading is 95/66 with pulse 117. I will order an additional liter of normal saline due to the drop in her blood pressure. 05/07/18 00:01 This went to see the patient 1 hour after ordering the additional liter of saline. It is running well, but there is approximately 100 mL's that have run in so far. I recycled the blood pressure was seen and it was reading 136 systolic. I am now looking at the monitor board and it is reading 162/74. (NGA MARAVILLA) 05/07/18 14:[address] Christensen at [facility]. Pt has been accepted and is waiting for a bed assignment. (LEIDY ACOSTA) 05/07/18 18:10 Blood work is been repeated, leukocytosis is still present but is improving, with WBCs are 17.5, no renal failure, urinalysis shows gram-negative rods, another dose of ertapenem has been ordered. [facility] called us and let us know that they were worried it would be 24-48 hours before the patient was able to be accepted to their facility so I did discuss this with the patient in the family and they gave me permission to call [facility], as noted above I spoke with Dr. Christensen at [facility] who accepted the patient. We just recently received that assignment and transport will be here at 1830. Patient' s pain is controlled, she is not hypertensive, she is mildly persistently tachycardic, patient is having good urine output. Patient will be transferred and is stable for transport. (MATILDE AWAD) - Vital Signs Vital signs: Temp Pulse Resp BP Pulse Ox 17 139/72 H 97 05/07/18 16:00 05/07/18 15:01 05/07/18 16:00 - Laboratory Laboratory results interpreted by me: 05/06/18 05/06/18 05/06/18 15:19 15:19 16:10 WBC 22.4 H RBC 5.49 H MCV 78 L MCH 26.5 L Seg Neuts % (Manual) 93 H Band Neutrophils % Lymphocytes % (Manual) 3 L Monocytes % (Manual) Abs Neuts (Manual) 20.8 H Absolute Eos (Manual) Sodium 136.9 L Potassium Chloride 92 L Carbon Dioxide 32 H BUN 33 H Est GFR (Non-Af Amer) 52 L Glucose 160 H Calcium 11.5 H Direct Bilirubin 0.7 H Alkaline Phosphatase 162 H Creatine Kinase < 20 L Total Protein Albumin 3.2 L Lipase 12.7 L Urine Protein 100 H Urine Blood SMALL H Ur Leukocyte Esterase LARGE H 05/07/18 05/07/18 16:24 16:24 WBC 17.5 H RBC MCV 78 L MCH 26.3 L Seg Neuts % (Manual) 86 H Band Neutrophils % 1 L Lymphocytes % (Manual) 6 L Monocytes % (Manual) 2 L Abs Neuts (Manual) 15.2 H Absolute Eos (Manual) 0.7 H Sodium Potassium 3.1 L Chloride Carbon Dioxide BUN 28 H Est GFR (Non-Af Amer) Glucose 112 H Calcium Direct Bilirubin Alkaline Phosphatase Creatine Kinase Total Protein 5.2 L Albumin 2.4 L Lipase Urine Protein Urine Blood Ur Leukocyte Esterase - Transfer of Care Notes: 05/07/18 00:06 Patient is pending transfer to [facility], she has been accepted, and is waiting for a bed assignment. (NGA MARAVILLA) Discharge <NGA MARAVILLA - Last Filed: 05/07/18 00:06> <LEIDY ACOSTA - Last Filed: 05/07/18 14:26> <MATILDE AWAD - Last Filed: 05/07/18 18:12> - Discharge Clinical Impression: Bilateral hydronephrosis, Bilateral ureteral obstruction, Metastatic disease, Dehydration Urinary tract infection Qualifiers: Urinary tract infection type: site unspecified Hematuria presence: with hematuria Qualified Code(s): N39.0 - Urinary tract infection, site not specified Leukocytosis Qualifiers: Leukocytosis type: unspecified Qualified Code(s): D72.829 - Elevated white blood cell count, unspecified Hypertension Qualifiers: Hypertension type: essential hypertension Qualified Code(s): I10 - Essential ( primary) hypertension Condition: Fair Disposition: [facility] Referrals: CRISTIAN HURTADO PA-C [NO LOCAL MD] - Follow up as needed Scribe Attestation: 05/06/18 15:46 I personally performed the services described in the documentation, reviewed and edited the documentation which was dictated to the scribe in my presence, and it accurately records my words and actions. (NGA MARAVILLA) Scribe Documentation - Scribe Written by Ramakrishna:: Ramakrishna Ramirez 05/06/18 1501 acting as scribe for :: Jerel <LEIDY ACOSTA - Last Filed: 05/07/18 14:26>
[2018-05-06] MEDS ORDERED: NORMAL SALINE 1000 ML 500 ML IV ONE (15:10)
[2018-05-06 16:01] LABS: HEMOGLOBIN 14.6 g/dL (12.0-15.5); MEAN CORPUSCULAR HEMOGLOBIN 26.5 pg (27.0-33.4); MEAN CORPUSCULAR HGB CONC 33.9 g/dL (32.0-36.0); MEAN CORPUSCULAR VOLUME 78 fl (80-97); PLATELET COUNT 245 10^3/uL (150-450); RED BLOOD COUNT 5.49 10^6/uL (3.72-5.28); RED CELL DISTRIBUTION WIDTH 13.8 % (11.5-14.0); WHITE BLOOD COUNT 22.4 10^3/uL (4.0-10.5)
[2018-05-06 16:20] LABS: ALANINE AMINOTRANSFERASE 13 U/L (9-52); ALBUMIN 3.2 g/dL (3.5-5.0); ALKALINE PHOSPHATASE 162 U/L (38-126); ANION GAP 13 (5-19); ASPARTATE AMINO TRANSFERASE 14 U/L (14-36); BILIRUBIN,DIRECT 0.7 mg/dL (0.0-0.4); BILIRUBIN,TOTAL 0.7 mg/dL (0.2-1.3); BLOOD UREA NITROGEN 33 mg/dL (7-20); CALCIUM 11.5 mg/dL (8.4-10.2); CARBON DIOXIDE 32 mmol/L (22-30); CHLORIDE 92 mmol/L (98-107); GLUCOSE 160 mg/dL (75-110); LIPASE 12.7 U/L (23-300); POTASSIUM 3.8 mmol/L (3.6-5.0); SODIUM 136.9 mmol/L (137-145); TOTAL PROTEIN 6.7 g/dL (6.3-8.2)
[2018-05-06 16:21] LABS: CREATINE KINASE < 20 U/L (30-135)
--- NOTE | 2018-05-06 16:22 | RADIOLOGY REPORT (SQ) ---
EXAM DESCRIPTION: CT CHEST WITHOUT; CT ABD/PELVIS NO ORAL OR IV COMPLETED DATE/TIME: 05/06/2018 3:55 pm REASON FOR STUDY: gen weakness, L superolateral chest mass; cancer?; diffuse abd pain; NO IV CONTRAS T COMPARISON: Two-view chest 02/01/2018 TECHNIQUE: CT scan of the chest performed without intravenous contrast using helical scanning techni que. Images reviewed with lung, soft tissue and bone windows. Reconstructed coronal and sagittal MPR images reviewed. All images stored on PACS. CT scan of the abdomen and pelvis performed without intravenous contrast and withoutoral contrast usi ng helical scanning technique with dynamic intravenous contrast injection. Images reviewed with lung , soft tissue and bone windows. Reconstructed coronal and sagittal MPR images reviewed. All images stored on PACS. All CT scanners at this facility use dose modulation, iterative reconstruction, and/or weight based d osing when appropriate to reduce radiation dose to as low as reasonably achievable (ALARA). [facility]: Dose Right [facility]: CareDose [facility]: Dose Right [facility]: Teradose 4D [facility]: [employer] RADIATION DOSE: CT Rad equipment meets quality standard of care and radiation dose reduction techniq ues were employed. CTDIvol: 10.4 mGy. DLP: 709 mGy-cm. mGy. LIMITATIONS: No technical limitations. FINDINGS: CHEST: AXILLAE: AA 12 cm x 10 cm x 8 cm mass is present in the left axilla, cystic and solid. A 2nd, smalle r nodule about 14 mm in size is seen along the inferior edge. This is worrisome for metastatic adeno ryan. CHEST WALL: No masses. No subcutaneous air. No gross breast lesions by CT. LUNGS: There are multiple pulmonary nodules worrisome for metastatic disease, the largest of these is 12 mm in the right upper lobe. Patient has obstructive lung disease with enlarged airspaces. No pl eural effusions. No pneumothorax. PLEURA: No effusions. No calcifications. THYROID: No masses or significant asymmetry. HILAR AND MEDIASTINAL STRUCTURES: No identified masses or abnormal nodes. AORTA AND GREAT VESSELS: No aneurysm. HEART: No pericardial effusion. HARDWARE AND LIFELINES: None. BONES: No significant finding. OTHER: No other significant finding. ABDOMEN AND PELVIS: LIVER: Normal size. No masses. No dilated ducts. SPLEEN: Normal size. No focal lesions. PANCREAS: No masses. No significant calcifications. No adjacent inflammation or peripancreatic flui d collections. Pancreatic duct not dilated. GALLBLADDER: Stones in the gallbladder without gallbladder wall thickening or pericholecystic fluid. ADRENAL GLANDS: No significant masses or asymmetry. KIDNEYS AND URETERS: There is marked bilateral hydronephrosis and hydroureter down to the urinary jack dder. Bilateral perinephric stranding is present. Urinary bladder exhibits scarring along its poste rior aspect, question bladder tumor versus scar tissue causing bilateral ureteral obstruction at the level of the bilateral ureterovesical junctions. No right or left collecting system stones. No bess s renal cysts or masses. AORTA AND VESSELS: No aneurysm. RETROPERITONEUM: No retroperitoneal adenopathy, hemorrhage or masses. APPENDIX: Normal. LARGE AND SMALL BOWEL: No dilatation. No masses. No wall thickening. ABDOMINAL WALL: Small umbilical hernia 3 cm defect in the anterior abdominal wall with herniation of nonobstructed small bowel. PERITONEAL CAVITY: No free air. No free fluid. No peritoneal implants or masses. PELVIS: Bladder wall thickening at the trigone, scar tissue versus tumor. This is at the level of reji th ureteral orifices into the bladder. Post hysterectomy. BONES: Lytic lesion leftward half of the L1 vertebral body has shown on axial image 59 and coronal im age 49 OTHER: No other significant finding. IMPRESSION: Multiple pulmonary nodules worrisome for metastatic disease 12 x 10 x 8 cm cystic and solid left axillary lesion worrisome for metastatic adenopathy Marked bilateral hydronephrosis and hydroureter down to the ureterovesical junction. Bladder trigone is thickened, question scar tissue versus tumor causing bilateral ureteral outflow obstruction TECHNICAL DOCUMENTATION: JOB ID: [id number] Quality ID # [id number]: Final reports with documentation of one or more dose reduction techniques (e.g., Au tomated exposure control, adjustment of the mA and/or kV according to patient size, use of iterative reconstruction technique) 2010 [employer]- All Rights Reserved Reading location - IP/workstation name: [facility]-REPLACED BY [facility]
[2018-05-06 16:27] LABS: ABSOLUTE LYMPHOCYTES# (MANUAL) 0.7 10^3/uL (0.5-4.7); ABSOLUTE MONOCYTES # (MANUAL) 0.9 10^3/uL (0.1-1.4); ABSOLUTE NEUTROPHILS# (MANUAL) 20.8 10^3/uL (1.7-8.2); BASOPHILS % (MANUAL) 0 % (0-2); EOSINOPHILS % (MANUAL) 0 % (0-6); LYMPHOCYTES % (MANUAL) 3 % (13-45); MONOCYTES % (MANUAL) 4 % (3-13); SEGMENTED NEUTROPHILS % (MAN) 93 % (42-78); TOTAL CELLS COUNTED 100
[2018-05-06 16:28] LABS: POLYCHROMASIA SLIGHT; TOXIC GRANULATION 1+
[2018-05-06 16:29] LABS: HYPOCHROMASIA SLIGHT; OVALOCYTES SLIGHT; PLATELET COMMENT ADEQUATE; POIKILOCYTOSIS SLIGHT
[2018-05-06 17:01] LABS: APPEARANCE,URINE TURBID; BILIRUBIN,URINE NEGATIVE (NEGATIVE); GLUCOSE, URINE NEGATIVE (NEGATIVE); KETONES,URINE NEGATIVE (NEGATIVE); LEUKOCYTE ESTERASE,URINE LARGE (NEGATIVE); NITRITE,URINE NEGATIVE (NEGATIVE); PROTEIN,URINE 100 mg/dL (NEGATIVE); URINE SPECIFIC GRAVITY 1.012; UROBILINOGEN,URINE NEGATIVE mg/dL (<2.0)
[2018-05-06 17:02] LABS: COLOR,URINE YELLOW
[2018-05-06] MEDS ORDERED: FENTANYL CITRATE INJ/PF 100 MCG/2 ML AMPUL IV ONE ×2 (17:06→20:54)
[2018-05-06] MEDS ORDERED: ERTAPENEM SODIUM INJ 1 GM VIAL IV ONE (17:06)
[2018-05-06] MEDS ORDERED: NORMAL SALINE 1000 ML 1,000 ML IV ONE ×2 (17:30→23:03)
--- NOTE | 2018-05-06 20:26 | EKG REPORT ---
SEVERITY:- ABNORMAL ECG - LEFT ANTERIOR FASCICULAR BLOCK MFAT : Confirmed by: Halina Hicks MD 06-May-2018 20:25:50
[2018-05-07] MEDS ORDERED: FENTANYL CITRATE INJ/PF 100 MCG/2 ML AMPUL IV ONE ×2 (03:29→07:05)
[2018-05-07] MEDS ORDERED: METOCLOPRAMIDE HCL INJ/PF 10 MG/2 ML SDV IV ONE (11:16)
[2018-05-07] MEDS: OXYCODONE-ACETAMINOPHEN 5-325 MG TABLET PO PRN ×2 (13:19→17:31)
[2018-05-07] MEDS ORDERED: ERTAPENEM SODIUM INJ 1 GM VIAL IV SCH (13:45)
[2018-05-07 16:34] LABS: HEMATOCRIT 36.2 % (36.0-47.0); MEAN CORPUSCULAR HEMOGLOBIN 26.3 pg (27.0-33.4); MEAN CORPUSCULAR HGB CONC 33.6 g/dL (32.0-36.0); MEAN CORPUSCULAR VOLUME 78 fl (80-97); PLATELET COUNT 198 10^3/uL (150-450); RED BLOOD COUNT 4.62 10^6/uL (3.72-5.28); RED CELL DISTRIBUTION WIDTH 13.8 % (11.5-14.0); WHITE BLOOD COUNT 17.5 10^3/uL (4.0-10.5)
[2018-05-07 16:45] LABS: ALANINE AMINOTRANSFERASE 12 U/L (9-52); ALBUMIN 2.4 g/dL (3.5-5.0); ALKALINE PHOSPHATASE 121 U/L (38-126); ANION GAP 10 (5-19); ASPARTATE AMINO TRANSFERASE 15 U/L (14-36); BILIRUBIN,DIRECT 0.4 mg/dL (0.0-0.4); BILIRUBIN,TOTAL 0.4 mg/dL (0.2-1.3); BLOOD UREA NITROGEN 28 mg/dL (7-20); CALCIUM 10.2 mg/dL (8.4-10.2); CARBON DIOXIDE 30 mmol/L (22-30); CHLORIDE 101 mmol/L (98-107); GLUCOSE 112 mg/dL (75-110); POTASSIUM 3.1 mmol/L (3.6-5.0); SODIUM 140.9 mmol/L (137-145); TOTAL PROTEIN 5.2 g/dL (6.3-8.2)
[2018-05-07 17:05] LABS: HEMOGLOBIN 12.2 g/dL (12.0-15.5)
[2018-05-07 17:08] LABS: ABSOLUTE LYMPHOCYTES# (MANUAL) 1.2 10^3/uL (0.5-4.7); ABSOLUTE MONOCYTES # (MANUAL) 0.4 10^3/uL (0.1-1.4); ABSOLUTE NEUTROPHILS# (MANUAL) 15.2 10^3/uL (1.7-8.2); BAND NEUTROPHILS % (MANUAL) 1 % (3-5); BASOPHILS % (MANUAL) 0 % (0-2); EOSINOPHILS % (MANUAL) 4 % (0-6); LYMPHOCYTES % (MANUAL) 6 % (13-45); MONOCYTES % (MANUAL) 2 % (3-13); SEGMENTED NEUTROPHILS % (MAN) 86 % (42-78); TOTAL CELLS COUNTED 100
[2018-05-07 17:10] LABS: OVALOCYTES SLIGHT; POIKILOCYTOSIS SLIGHT; TOXIC GRANULATION SLIGHT; TOXIC VACUOLATION PRESENT
[2018-05-07 17:11] LABS: PLATELET COMMENT ADEQUATE
[2018-05-07 18:34] VITALS: BP 117/60
== END 2018-05-07 18:57 | disposition short-term general hospital (02) ==
LOC: ER 14:11
DX: N13.2 Hydronephrosis with renal and ureteral calculous obstruction (principal); C80.1 Malignant (primary) neoplasm, unspecified; N39.0 Urinary tract infection, site not specified; D72.829 Elevated white blood cell count, unspecified; I10 Essential (primary) hypertension; E86.0 Dehydration; R53.1 Weakness; R11.10 Vomiting, unspecified; Z89.212 Acquired absence of left upper limb below elbow
CPT/HCPCS: 93005; 96376; 99285; 96361; 96375; 96365; 36415; 87040; 87086; 82550; 83690; 85025; 87088; 80053; 81001; 84484; 87186; 83605; 71250; 74176; 93010; J3010 ×2; J1335; J2765; A9270; J7030